=== PATIENT | female | born 1960 | race American Indian/Alaskan Native ===

== ENCOUNTER 2016-05-01 23:15 | Inpatient (IN) | payer MEDICARE, OTHER ==
[2016-05-01] MEDS ORDERED: DUONEB 0.5 MG-3 MG/3 ML SOLN IH ONE (23:34)
[2016-05-01] MEDS ORDERED: LASIX IV ONE (23:35)
[2016-05-01] MEDS ORDERED: MAGNESIUM SULFATE 2GM/50ML 2 GM/50 ML BAG IV ONE (23:35)
[2016-05-01] MEDS ORDERED: APRESOLINE IV ONE (23:37)
[2016-05-01 23:41] LABS: ISTAT Base Excess -3; ISTAT HCO3 23.8; ISTAT PCO2 50.1 (35-45); ISTAT PH 7.284 (7.35-7.45); ISTAT PO2 80 (80-105); ISTAT SO2 94; ISTAT TCO2 25
--- NOTE | 2016-05-02 00:17 | XRay Report ---
FINAL REPORT EXAM: XR CHEST 1V AP HISTORY: chest pain COMPARISON: None available. FINDINGS: Frontal view(s) of the chest obtained. Moderate cardiac enlargement. Left-sided defibrillator is in place. Airspace consolidations throughout the majority of the right lung and left lung base. Small left and moderate right-sided pleural effusions. No pneumothorax. IMPRESSION: Findings most concerning for moderate CHF more pronounced on the right. Superimposed pneumonia cannot be excluded.
[2016-05-02 00:23] LABS: Basophils % (Auto) 0.6 % (0.0-1.8); Eosinophils % (Auto) 2.1 % (0.0-4.3); Hematocrit 36.9 % (30.3-42.9); Hemoglobin 11.8 gm/dl (10.1-14.3); Mean Corpuscular HGB Conc 32 % (30-34); Mean Corpuscular Hemoglobin 28 pg (28-32); Mean Corpuscular Volume 88 fl (79-97); Platelet Count 276 K/mm3 (140-440); Red Blood Count 4.21 M/mm3 (3.65-5.03); Red Cell Distribution Width 14.3 % (13.2-15.2)
[2016-05-02 00:28] LABS: Bilirubin,Urine NEG (Negative); Blood,Urine SM (Negative); Ketones,Urine NEG (Negative); Leukocyte Esterase,Urine NEG (Negative); Nitrite,Urine NEG (Negative); Urobilinogen,Urine < 2.0 mg/dL (<2.0); WBC,Urine < 1.0 /HPF (0.0-6.0)
[2016-05-02 00:30] LABS: Protein,Urine >500 mg/dL (Negative)
[2016-05-02 00:44] LABS: Alanine Aminotransferase 16 units/L (7-56); Albumin 3.1 g/dL (3.9-5); Albumin/Globulin Ratio 0.8 %; Alkaline Phosphatase 82 units/L (35-129); Anion Gap 18 mmol/L; BUN/Creatinine Ratio 22.85; Bilirubin,Total 0.5 mg/dL (0.1-1.2); Blood Urea Nitrogen 16 mg/dL (7-17); Calcium 8.5 mg/dL (8.4-10.2); Carbon Dioxide 25 mmol/L (22-30); Chloride 97.8 mmol/L (98-107); Glucose 383 mg/dL (65-100); Potassium 3.2 mmol/L (3.6-5.0); Sodium 138 mmol/L (137-145)
--- NOTE | 2016-05-02 01:38 | Emergency Department Report ---
HPI - General Chief Complaint: Dyspnea/Respdistress Time Seen by Provider: 05/01/16 23:34 - HPI HPI: The patient is a 56-year-old female with a history of CHF, COPD, pacemaker placement, and who presents for evaluation of dyspnea. The patient reports 1 day of constant dyspnea, severe, exacerbated with exertion or lying flat, and associated with generalized weakness and leg swelling. Per EMS on arrival the patient was in respiratory distress with low oxygen saturation on pulse oximetry. The patient denies fever, syncope, chest pain, hemoptysis, unilateral leg swelling, recent immobilization, history of DVT or PE. ED Past Medical Hx - Past Medical History Hx Hypertension: Yes Hx Heart Attack/AMI: No Hx Congestive Heart Failure: Yes Hx Diabetes: Yes Hx Asthma: No Hx COPD: Yes - Surgical History Past Surgical History?: Yes Hx Internal Defibrillator: Yes - Social History Smoking Status: Unknown if ever smoked - Medications Home Medications: Home Medications Medication Instructions Recorded Confirmed Last Taken Type Aspirin EC [Aspirin Enteric Coated 81 mg PO QDAY 12/31/14 12/31/14 Unknown History TAB] Carvedilol Phosphate [Coreg CR] 80 mg PO QDAY 12/31/14 12/31/14 Unknown History Digoxin [Lanoxin] 0.125 mg PO DAILY 12/31/14 12/31/14 Unknown History Esomeprazole Magnesium [NexIUM] 40 mg PO QDAY 12/31/14 12/31/14 Unknown History Humalog Kwikpen 200 UNITS/ML 6 units SUB-Q TID 12/31/14 12/31/14 Unknown History Insulin Glargine,Hum.rec.anlog 40 units SQ QHS 12/31/14 12/31/14 Unknown History [Lantus Solostar] Latanoprost 0.005% [Xalatan 0.005%] 1 drop OP QPM 12/31/14 12/31/14 Unknown History Metformin HCl [Glucophage] 1,000 mg PO BID 12/31/14 12/31/14 Unknown History Metolazone 5 mg PO QDAY 12/31/14 12/31/14 Unknown History NIFEdipine XL [Procardia Xl] 60 mg PO QDAY 12/31/14 12/31/14 Unknown History Potassium Chloride [K-Dur] 20 meq PO QDAY 12/31/14 12/31/14 Unknown History Quinapril HCl 1 tab PO AC 12/31/14 12/31/14 Unknown History Simvastatin [Zocor TAB] 40 mg PO QHS 12/31/14 12/31/14 Unknown History Furosemide [Lasix TAB] 40 mg PO QDAY 01/03/15 01/03/15 Unknown History ED Review of Systems ROS: Stated complaint: NADEEN Other details as noted in HPI Constitutional: denies: fever ENT: denies: throat or neck pain Respiratory: reports shortness of breath Cardiovascular: denies: chest pain Endocrine: denies unexplained weight loss or gain Gastrointestinal: denies: abdominal pain, nausea Genitourinary: denies: dysuria Musculoskeletal: denies: leg swelling Skin: denies: rash Neurological: denies: headache Hematological/Lymphatic: denies: easy bleeding or easy bruising Psych: denies sadness or hopelessness Physical Exam - Physical Exam Vital Signs: Vital Signs 05/01/16 05/01/16 05/01/16 23:14 23:17 23:20 Pulse Rate 108 H 104 H 106 H Pulse Rate [ Anterior Bilateral Throughout] Respiratory 34 H 30 H 36 H Rate Respiratory Rate [Anterior Bilateral Throughout] Blood Pressure 172/103 172/103 Blood Pressure [Left] O2 Sat by Pulse 46 L 90 91 Oximetry 05/01/16 05/01/16 05/01/16 23:25 23:30 23:40 Pulse Rate 108 H 100 H 96 H Pulse Rate [ Anterior Bilateral Throughout] Respiratory 27 H 25 H 25 H Rate Respiratory Rate [Anterior Bilateral Throughout] Blood Pressure 172/103 160/94 163/92 Blood Pressure 163/92 [Left] O2 Sat by Pulse 90 89 90 Oximetry 05/01/16 05/01/16 05/01/16 23:44 23:50 23:53 Pulse Rate 100 H Pulse Rate [ 99 H 99 H Anterior Bilateral Throughout] Respiratory 29 H Rate Respiratory 25 H 24 Rate [Anterior Bilateral Throughout] Blood Pressure 148/94 Blood Pressure [Left] O2 Sat by Pulse 91 Oximetry 05/02/16 05/02/16 05/02/16 00:00 00:10 00:16 Pulse Rate 100 H 99 H 100 H Pulse Rate [ Anterior Bilateral Throughout] Respiratory 27 H 26 H 28 H Rate Respiratory Rate [Anterior Bilateral Throughout] Blood Pressure 171/97 171/97 181/98 Blood Pressure [Left] O2 Sat by Pulse 98 96 97 Oximetry 03/05/02/16 05/02/16 00:20 00:24 00:30 Pulse Rate 98 H 99 H Pulse Rate [ Anterior Bilateral Throughout] Respiratory 25 H 24 Rate Respiratory Rate [Anterior Bilateral Throughout] Blood Pressure 181/98 183/104 Blood Pressure [Left] O2 Sat by Pulse 97 89 97 Oximetry Physical Exam: General: well-nourished, well-developed, no acute distress, patient morbidly obese Head: Normocephalic, atraumatic Eyes: normal sclera ENT: Mucous membranes are pink and moist Neck: trachea midline, neck supple, No neck stiffness, no cervical adenopathy Respiratory: Mild costal retractions, diminished breath sounds and wheezing present to bilateral lung [place], crackles present to bi-basilar lung seg[place] as well Cardio: S1 and S2 present, no murmurs, rubs, gallops, capillary refill is brisk Abdomen: Normoactive bowel sounds, soft abdomen, no rigidity, no guarding or rebound tenderness Musc: 1+ pitting edema of lower legs bilaterally Skin: No rash Neuro: no facial drooping, normal speech Psych: Normal affect ED Course Vital Signs 05/01/16 05/01/16 05/01/16 23:14 23:17 23:20 Pulse Rate 108 H 104 H 106 H Pulse Rate [ Anterior Bilateral Throughout] Respiratory 34 H 30 H 36 H Rate Respiratory Rate [Anterior Bilateral Throughout] Blood Pressure 172/103 172/103 Blood Pressure [Left] O2 Sat by Pulse 46 L 90 91 Oximetry 05/01/16 05/01/16 05/01/16 23:25 23:30 23:40 Pulse Rate 108 H 100 H 96 H Pulse Rate [ Anterior Bilateral Throughout] Respiratory 27 H 25 H 25 H Rate Respiratory Rate [Anterior Bilateral Throughout] Blood Pressure 172/103 160/94 163/92 Blood Pressure 163/92 [Left] O2 Sat by Pulse 90 89 90 Oximetry 05/01/16 05/01/16 05/01/16 23:44 23:50 23:53 Pulse Rate 100 H Pulse Rate [ 99 H 99 H Anterior Bilateral Throughout] Respiratory 29 H Rate Respiratory 25 H 24 Rate [Anterior Bilateral Throughout] Blood Pressure 148/94 Blood Pressure [Left] O2 Sat by Pulse 91 Oximetry 05/02/16 05/02/16 05/02/16 00:00 00:10 00:16 Pulse Rate 100 H 99 H 100 H Pulse Rate [ Anterior Bilateral Throughout] Respiratory 27 H 26 H 28 H Rate Respiratory Rate [Anterior Bilateral Throughout] Blood Pressure 171/97 171/97 181/98 Blood Pressure [Left] O2 Sat by Pulse 98 96 97 Oximetry 05/02/16 05/02/16 05/02/16 00:20 00:24 00:30 Pulse Rate 98 H 99 H Pulse Rate [ Anterior Bilateral Throughout] Respiratory 25 H 24 Rate Respiratory Rate [Anterior Bilateral Throughout] Blood Pressure 181/98 183/104 Blood Pressure [Left] O2 Sat by Pulse 97 89 97 Oximetry ED Medical Decision Making - Lab Data Result diagrams: 05/01/16 23:51 05/01/16 23:51 - Medical Decision Making The patient was seen and examined by myself. The patient is placed on a lunchroom monitor and continuous pulse ox. On initial evaluation, the patient was found to be in mild respiratory distress, with low oxygen saturation in the low 80s despite supplemental oxygenation. The patient is placed on BiPAP and oxygen saturation increases to 90%. Evaluation orders were placed. The patient is given a breathing treatment and IV Solu-Medrol of COPD, IV Lasix for treatment of CHF exacerbation, and IV hydralazine for treatment of elevated blood pressure. X-ray demonstrates bilateral pulmonary consolidations and pleural effusions, consistent with acute CHF. Lab results reveal elevated glucose 380, elevated lactic acid of 3, elevated BNP of 1900, and elevated PCO2 of 50 on ABG. The on-call hospitalist service was contacted. They agreed to admit the patient for further treatment and close monitoring. The ED admit order was placed. The patient was admitted in guarded condition. Critical care attestation.: If time is entered above; I have spent that time in minutes in the direct care of this critically ill patient, excluding procedure time. ED Disposition Clinical Impression: Acute hypercapnic respiratory failure, Hypoxia, Lactic acidosis, Acute exacerbation of chronic obstructive pulmonary disease (COPD) CHF (congestive heart failure) Qualifiers: Congestive heart failure type: systolic Congestive heart failure chronicity: acute Qualified Code(s): I50.21 - Acute systolic (congestive) heart failure Disposition: OP ADMITTED IP TO THIS HOSP Is pt being admited?: Yes Does the pt Need Aspirin: Yes Condition: Serious Referrals: PRIMARY CARE, [Primary Care Provider] - 3-5 Days Time of Disposition: 00:41
[2016-05-02] MEDS ORDERED: BABY ASPIRIN PO ONE (01:41)
[2016-05-02] MEDS ORDERED: LEVAQUIN 750MG/150ML 750 MG/150 ML BAG IV ONE (02:12)
[2016-05-02] MEDS ORDERED: MILK OF MAGNESIA PO PRN (02:13)
[2016-05-02] MEDS ORDERED: D50W (25GM) IV PRN (02:13)
[2016-05-02] MEDS ORDERED: PROVENTIL IH PRN (02:13)
[2016-05-02] MEDS ORDERED: DULCOLAX PR PRN (02:13)
--- NOTE | 2016-05-02 02:18 | History and Physical Report ---
History of Present Illness Date of examination: 05/02/16 History of present illness: 56 -year-old woman with a history of CHF, hypertension, COPD, pulmonary hypertension, hyperlipidemia, peripheral vascular disease comes emergency room with complaints of shortness of breath started on the day of admission. She denies cough, fever. Patient was found to be in respiratory distress, given IV Lasix in the field, in the emergency room she was placed on BiPAP, given steroids nebulizer treatment and additional Lasix Patient denies chest pain, palpitation, cough, abdominal pain, hematochezia, dysuria, frequency, focal weakness, dysarthria, fever chills, polydipsia polyuria, hot or cold intolerance, easy bruisability, or rash or bleeding from mucosal membrane, rhinorrhea, epistaxis, earache, tinnitus, blurry vision, eye discharge, anxiety, depression. Other review of systems negative PAST SURGICAL HISTORY: AICD SOCIAL HISTORY: Denies alcohol, tobacco, drugs FAMILY HISTORY: Hypertension Medications and Allergies Allergies Allergy/AdvReac Type Severity Reaction Status Date / Time No Known Allergies Allergy Unverified 12/31/14 14:21 Home Medications Medication Instructions Recorded Confirmed Last Taken Type Digoxin [Lanoxin] 0.125 mg PO DAILY 12/31/14 05/02/16 1 Day Ago History Metformin HCl [Glucophage] 1,000 mg PO BID 12/31/14 05/02/16 05/01/16 History NIFEdipine XL [Procardia Xl] 60 mg PO QDAY 12/31/14 05/02/16 05/01/16 History Potassium Chloride [K-Dur] 20 meq PO QDAY 12/31/14 05/02/16 05/01/16 History Quinapril HCl 1 tab PO AC 12/31/14 05/02/16 05/01/16 History Furosemide [Lasix TAB] 40 mg PO QDAY 01/03/15 05/02/16 05/01/16 History Carvedilol Phosphate [Coreg CR] 80 mg PO QDAY 05/02/16 05/02/16 05/01/16 History Isosorbide Dinitrate [Isordil 10 mg PO TID 05/02/16 05/02/16 05/01/16 History Titradose] hydrALAZINE [Apresoline TAB] 25 mg PO Q8HR 05/02/16 05/02/16 05/01/16 History Aspirin EC [Aspirin Enteric Coated 81 mg PO QDAY #30 tablet. 05/06/16 Unknown Rx TAB] Simvastatin [Zocor TAB] 40 mg PO QHS tablet 05/06/16 Unknown Rx Spironolactone [Aldactone] 25 mg PO QDAY #30 tablet 05/06/16 Unknown Rx Active Meds: Active Medications Levofloxacin/Dextrose (Levaquin 750mg/150ml) 750 mg in 150 mls @ 100 mls/hr IV ONCE ONE Stop: 05/02/16 03:41 Exam - Physical Exam Narrative exam: Gen. appearance: Patient lying in bed, no apparent distress HEENT: Normocephalic, atraumatic, pupils equally round and reactive to light, extraocular movement intact, and no sclericterus,. No JVD or thyromegaly or nodule,neck supple, no carotid bruit ,mucous membranes moist, no exudate or erythema Heart: S1, S2, regular rate and rhythm Lungs: Crackles bilaterally, breathing comfortable Abdomen: Positive bowel sounds, nontender, nondistended, no organomegaly Extremity: Trace edema, cyanosis, clubbing Skin: No rash, nodules, warm, dry Neuro: Oriented 3, cranial nerves II-12 intact, speech is fluent, motor and sensory intact - Constitutional Vitals: Temp Pulse Resp BP Pulse Ox 96 H 25 H 171/99 94 05/02/16 01:30 05/02/16 01:30 05/02/16 01:30 05/02/16 01:30 Results - Labs CBC & Chem 7: 05/04/16 04:42 05/06/16 07:06 Labs: Abnormal lab results 05/01/16 05/01/16 05/01/16 Range/Units 23:35 23:51 23:51 Seg Neutrophils % 76.8 H (40.0-70.0) % Seg Neutrophils # 8.5 H (1.8-7.7) K/mm3 POC ABG pH 7.284 L (7.35-7.45) POC ABG pCO2 50.1 H (35-45) Potassium 3.2 L (3.6-5.0) mmol/L Chloride 97.8 L (98-107) mmol/L Glucose 383 H (65-100) mg/dL Lactic Acid (0.7-2.0) mmol/L NT-Pro-B Natriuret Pep 1924 H (0-900) pg/mL Albumin 3.1 L (3.9-5) g/dL 05/01/16 Range/Units 23:51 Seg Neutrophils % (40.0-70.0) % Seg Neutrophils # (1.8-7.7) K/mm3 POC ABG pH (7.35-7.45) POC ABG pCO2 (35-45) Potassium (3.6-5.0) mmol/L Chloride (98-107) mmol/L Glucose (65-100) mg/dL Lactic Acid 3.0 H* (0.7-2.0) mmol/L NT-Pro-B Natriuret Pep (0-900) pg/mL Albumin (3.9-5) g/dL - Imaging and Cardiology EKG: image reviewed Chest x-ray: report reviewed Assessment and Plan CHF exacerbation, acute on chronic, systolic Community-acquired pneumonia Hypertension COPD Pulmonary hypertension Hyperlipidemia Peripheral vascular disease Admit to medicine Diuresed with IV Lasix Check cardiac enzymes, echo, consult cardiology Continue beta isidro, ELDON inhibitor, aspirin Untie cyanosis, daily weights Start IV Levaquin, first dose now, obtain blood cultures Continue appropriate outpatient medications Start DVT prophylaxis
[2016-05-02 03:43] LABS: Creatine Kinase MB 3.2 ng/mL (0.0-4.0)
[2016-05-02] MEDS: LASIX IV SCH ×2 (05:31→18:19)
[2016-05-02] MEDS ORDERED: QUINAPRIL HCL PO SCH (07:30)
[2016-05-02] MEDS ORDERED: HUMALOG SUB-Q SCH (08:00)
[2016-05-02] MEDS: PROTONIX PO SCH (09:14)
[2016-05-02] MEDS: BABY ASPIRIN PO SCH (09:14)
[2016-05-02] MEDS: COREG PO SCH ×2 (09:14→21:20)
[2016-05-02] MEDS: LOVENOX SUB-Q SCH (09:15)
[2016-05-02 09:23] LABS: Creatine Kinase MB 2.5 ng/mL (0.0-4.0)
[2016-05-02] MEDS: GLUCOPHAGE PO SCH ×2 (09:24→21:21)
[2016-05-02] MEDS: NOVOLOG SUB-Q SCH ×7 (09:24→21:22)
--- NOTE | 2016-05-02 09:28 | Admit Criteria Form ---
Admission Criteria Documentation: COPD Clinical Indications for Admission to Inpatient Care (Place 'X' for any and all applicable criteria): Admission is indicated for ANY ONE of the following (1)(2)(3): [ ]I. Acute exacerbation by high-risk comorbidity (e.g., pneumonia, dysrhythmia, heart failure, pleural effusion, pneumothorax) or severe underlying COPD (e.g., steroid dependent) [ X]II. Inpatient admission required rather than observation care (see Chronic Obstructive Pulmonary Disease: Observation Care) because of ANY ONE of the following: [X ]a) New or pre-existing signs or symptoms of COPD (eg, dyspnea or Tachypnea at rest or with minimal activity) that persist despite outpatient and observation care treatment [ ]b) New-onset hypoxemia (room air SaO2 less than 90%, PO2 less than 60 mm Hg (8.0 kPa)) that persists despite outpatient and observation care treatment [ ]c) Worsening of pre-existing hypoxemia (eg, new or increased requirement for supplemental oxygen to maintain oxygenation at baseline level) that persists despite outpatient and observation care treatment, with oxygen treatment needs performable only in acute inpatient setting [ ]d) Hypercarbia (PCO2 greater than 40 mm Hg (5.3 kPa))-induced respiratory acidosis (pH less than 7.35) that persists despite outpatient and observation care treatment [ ]e) Supplemental oxygen or respiratory treatments for over 24 hours that are performable only in acute inpatient setting [ ]f) Chest tube placement with active evacuation (e.g., suction, drainage) (5) [ ]g) Other condition, treatment or monitoring requiring inpatient admission [ ]III. Planned invasive surgical or diagnostic procedures requiring acute- care hospitalization [X ]IV. Acute respiratory failure (e.g., uncompensated hypercarbia, severe hypoxemia) [ ]V. Severe comorbid condition (e.g., severe steroid myopathy, acute vertebral fracture) that has acutely worsened pulmonary function [ ]. Confusion state, lethargy, obtundation, stupor or coma Extended stay beyond goal length of stay may be needed for (31)(32): [ ]a ) Respiratory Failure. [ ]b) Severe or persisting hypoxemia or hypercarbia [ ]c) Severe or persistent dyspnea [ ]d) Comorbidities (e.g. chronic heart failure, atrial fibrillation with rapid response, pneumonia) [ ]e) Malnutrition The original [facility] content created by [facility] has been revised. The portions of the content which have been revised are identified through the use of italic text or in bold, and [facility] has neither reviewed nor approved the modified material. All other unmodified content is copyright [facility]. Please see references footnoted in the original [facility] edition 2016 Admission Criteria Met: Yes
[2016-05-02] MEDS ORDERED: ZESTRIL PO SCH (10:00)
[2016-05-02] MEDS ORDERED: COREG PO SCH (10:00)
--- NOTE | 2016-05-02 11:05 | Consultation ---
History of Present Illness Consult date: 05/02/16 Consult reason: congestive heart failure History of present illness: This is a 56yr old female with a history of Dilated Nonischemic Cardiomyopathy and has an indwelling cardiac defibrillator who presented to the ED with complaints of difficulty breathing. Patient associates her shortness of breath with lower extremity edema. A chest x-ray reports a right pleural effusion and questionable pneumonia. Initially she was placed on Cpap but is now on high flow oxygen. Medications and Allergies Allergies Allergy/AdvReac Type Severity Reaction Status Date / Time No Known Allergies Allergy Unverified 12/31/14 14:21 Home Medications Medication Instructions Recorded Confirmed Last Taken Type Digoxin [Lanoxin] 0.125 mg PO DAILY 12/31/14 05/02/16 1 Day Ago History Metformin HCl [Glucophage] 1,000 mg PO BID 12/31/14 05/02/16 05/01/16 History NIFEdipine XL [Procardia Xl] 60 mg PO QDAY 12/31/14 05/02/16 05/01/16 History Potassium Chloride [K-Dur] 20 meq PO QDAY 12/31/14 05/02/16 05/01/16 History Quinapril HCl 1 tab PO AC 12/31/14 05/02/16 05/01/16 History Furosemide [Lasix TAB] 40 mg PO QDAY 01/03/15 05/02/16 05/01/16 History Carvedilol Phosphate [Coreg CR] 80 mg PO QDAY 05/02/16 05/02/16 05/01/16 History Isosorbide Dinitrate [Isordil 10 mg PO TID 05/02/16 05/02/16 05/01/16 History Titradose] hydrALAZINE [Apresoline] 25 mg PO Q8HR 05/02/16 05/02/16 05/01/16 History Active Meds: Active Medications Acetaminophen (Tylenol) 650 mg PO Q4H PRN PRN Reason: Pain MILD(1-3)/Fever >100.5/LEIGH Albuterol (Proventil) 2.5 mg IH Q3HRT PRN PRN Reason: Shortness Of Breath Aspirin (Baby Aspirin) 81 mg PO QDAY [facility]AC[facility] Last Admin: 05/02/16 09:14 Dose: 81 mg Bisacodyl (Dulcolax) 10 mg DE QDAY PRN PRN Reason: Constipation unrelieved by MOM Carvedilol (Coreg) 25 mg PO Q12HR [facility] Last Admin: 05/02/16 09:14 Dose: 25 mg Dextrose (D50w (25gm)) 50 ml IV PRN PRN PRN Reason: Hypoglycemia Digoxin (Lanoxin) 0.125 mg PO 1700 [facility] Enoxaparin Sodium (Lovenox) 40 mg SUB-Q QDAY [facility] Last Admin: 05/02/16 09:15 Dose: 40 mg Furosemide (Lasix) 40 mg IV BID@0600,1800 [facility] Last Admin: 05/02/16 05:31 Dose: 40 mg Insulin Aspart (Novolog) 0 units SUB-Q ACHS [facility] PRN Reason: Protocol Last Admin: 05/02/16 09:24 Dose: 10 units Insulin Aspart (Novolog) 6 units SUB-Q TIDAC [facility] Last Admin: 05/02/16 09:25 Dose: 6 units Insulin Detemir (Levemir) 40 units SUB-Q QHS [facility] Magnesium Hydroxide (Milk Of Magnesia) 30 ml PO Q4H PRN PRN Reason: Constipation Metformin HCl (Glucophage) 1,000 mg PO BID [facility] Last Admin: 05/02/16 09:24 Dose: 1,000 mg Miscellaneous Medication (Quinapril Hcl [Quinapril Hcl]) 1 tab PO AC [facility] Ondansetron HCl (Zofran) 4 mg IV Q8H PRN PRN Reason: N/V unrelieved by Reglan Pantoprazole Sodium (Protonix) 40 mg PO DAILY [facility] Last Admin: 05/02/16 09:14 Dose: 40 mg Simvastatin (Zocor) 40 mg PO QHS [facility] Physical Examination Vital Signs Pulse Resp Pulse Ox 108 H 34 H 46 L 05/01/16 23:14 05/01/16 23:14 05/01/16 23:14 General appearance: no acute distress HEENT: Positive: PERRL Neck: Positive: trachea midline Cardiac: Positive: Other (v-paced) Lungs: Positive: Decreased Breath Sounds Results 05/01/16 23:51 05/01/16 23:51 Cardiac Enzymes 05/02/16 05/02/16 Range/Units 02:33 08:40 CK-MB (CK-2) 3.2 2.5 (0.0-4.0) ng/mL Lipids 05/02/16 Range/Units 02:33 Triglycerides 136 (2-149) mg/dL Cholesterol 238 H (50-199) mg/dL HDL Cholesterol 71 H (40-59) mg/dL Cholesterol/HDL Ratio 3.35 % EKG interpretations - Telemetry EKG Rhythm: Paced Assessment and Plan Acute respiratory failure Pneumonia Right Pleural effusion Dilated Nonischemic cardiomyopathy EF 15-20% on echo 2012 Hypertension COPD
[2016-05-02] MEDS: ZESTRIL PO SCH (13:35)
--- NOTE | 2016-05-02 14:03 | Consultation ---
History of Present Illness Consult date: 05/02/16 Requesting physician: ZOEY BUCHANAN Reason for consult: dyspnea, hypoxemia History of present illness: 56 y/o female with heart failure, presumed systolic with a defibrillator who is admitted with acute hypoxic respiratory failure thought secondary to volume overload and possible concern for pneumonia. Per patient, no fever at home, no shaking chills. Only sick contacts have been the last time she was here in the hospital. Patient placed on bipap and has since been transitioned to HFNC at 30 and 80%. Currently awake and alert, no distress. Unable to lie flat. Has been this way for some time. Has had some swelling which improved diuresis. Denies any noncompliance with therapy. Wore bipap last night and tolerated. Past History Past Medical History: hypertension, other (CHF, systolic heart failure) Past Surgical History: Other (defib placement) Medications and Allergies Allergies Allergy/AdvReac Type Severity Reaction Status Date / Time No Known Allergies Allergy Unverified 12/31/14 14:21 Home Medications Medication Instructions Recorded Confirmed Last Taken Type Digoxin [Lanoxin] 0.125 mg PO DAILY 12/31/14 05/02/16 1 Day Ago History Metformin HCl [Glucophage] 1,000 mg PO BID 12/31/14 05/02/16 05/01/16 History NIFEdipine XL [Procardia Xl] 60 mg PO QDAY 12/31/14 05/02/16 05/01/16 History Potassium Chloride [K-Dur] 20 meq PO QDAY 12/31/14 05/02/16 05/01/16 History Quinapril HCl 1 tab PO AC 12/31/14 05/02/16 05/01/16 History Furosemide [Lasix TAB] 40 mg PO QDAY 01/03/15 05/02/16 05/01/16 History Carvedilol Phosphate [Coreg CR] 80 mg PO QDAY 05/02/16 05/02/16 05/01/16 History Isosorbide Dinitrate [Isordil 10 mg PO TID 05/02/16 05/02/16 05/01/16 History Titradose] hydrALAZINE [Apresoline] 25 mg PO Q8HR 05/02/16 05/02/16 05/01/16 History Active Meds: Active Medications Acetaminophen (Tylenol) 650 mg PO Q4H PRN PRN Reason: Pain MILD(1-3)/Fever >100.5/LEIGH Albuterol (Proventil) 2.5 mg IH Q3HRT PRN PRN Reason: Shortness Of Breath Aspirin (Baby Aspirin) 81 mg PO QDAY [facility] Last Admin: 05/02/16 09:14 Dose: 81 mg Bisacodyl (Dulcolax) 10 mg [place] QDAY PRN PRN Reason: Constipation unrelieved by MOM Carvedilol (Coreg) 25 mg PO Q12HR [facility] Last Admin: 05/02/16 09:14 Dose: 25 mg Dextrose (D50w (25gm)) 50 ml IV PRN PRN PRN Reason: Hypoglycemia Digoxin (Lanoxin) 0.125 mg PO 1700 [facility] Enoxaparin Sodium (Lovenox) 40 mg SUB-Q QDAY [facility] Last Admin: 05/02/16 09:15 Dose: 40 mg Furosemide (Lasix) 40 mg IV BID@0600,1800 [facility] Last Admin: 05/02/16 05:31 Dose: 40 mg Insulin Aspart (Novolog) 0 units SUB-Q ACHS [facility] PRN Reason: Protocol Last Admin: 05/02/16 13:33 Dose: 6 units Insulin Aspart (Novolog) 6 units SUB-Q TIDAC [facility] Last Admin: 05/02/16 13:33 Dose: 6 units Insulin Detemir (Levemir) 40 units SUB-Q QHS [facility] Lisinopril (Zestril) 20 mg PO QDAY [facility] Last Admin: 05/02/16 13:35 Dose: 20 mg Magnesium Hydroxide (Milk Of Magnesia) 30 ml PO Q4H PRN PRN Reason: Constipation Metformin HCl (Glucophage) 1,000 mg PO BID [facility] Last Admin: 05/02/16 09:24 Dose: 1,000 mg Ondansetron HCl (Zofran) 4 mg IV Q8H PRN PRN Reason: N/V unrelieved by Reglan Pantoprazole Sodium (Protonix) 40 mg PO DAILY [facility] Last Admin: 05/02/16 09:14 Dose: 40 mg Simvastatin (Zocor) 40 mg PO QHS [facility] Review of Systems All systems: negative Physical Examination Vital signs: Vital Signs Pulse Resp Pulse Ox 108 H 34 H 46 L 05/01/16 23:14 05/01/16 23:14 05/01/16 23:14 General appearance: no acute distress, alert, other (well nourished, well developed. Obese black female) Eyes: non-icteric ENT: oropharynx moist Neck: supple Effort: normal Ascultation: Bilateral: diminished breath sounds, rales (right greater than left ) Percussion: Bilateral: not dull Cardiovascular: regular rate and rhythm Gastrointestinal: normoactive bowel sounds Integumentary: normal Extremities: edema (trace to 1 +) Musculoskeletal: no deformities Gait: normal gait normal mental status, non-focal exam mood appropriate, affect normal Results - Laboratory Findings CBC and BMP: 05/01/16 23:51 05/01/16 23:51 ABG POC ABG pH 7.284 (7.35-7.45) L 05/01/16 23:35 POC ABG pCO2 50.1 (35-45) H 05/01/16 23:35 POC ABG pO2 80 (80-105) 05/01/16 23:35 POC ABG HCO3 23.8 05/01/16 23:35 POC ABG Total CO2 25 05/01/16 23:35 POC ABG O2 Sat 94 05/01/16 23:35 Abnormal lab findings: Abnormal Labs 05/02/16 02:33 Total Creatine Kinase 148 H Troponin T 0.030 H D Cholesterol 238 H LDL Cholesterol Direct 140 H HDL Cholesterol 71 H - Diagnostic Findings Chest x-ray: image reviewed (bilateral alveolar filling process, right greater than left) Assessment and Plan 56 y/o female with acute hypoxic respiratory failure, thought secondary to volume overload. 1. Agree with continued diuresis as recommended by cards 2. No white count no fever, doubt pneuomonia at present. Would hold off on abx therapy 3. Will wean FiO2 for sats >88% 4. Bipap therapy at night for now 5. Needs better BP control 6. Will continue to follow along with you.
--- NOTE | 2016-05-02 17:06 | Event Note ---
Date: 05/02/16 Patient admitted with acute resp failure, pulmonary edema, possible pneumonia. She was seen and examined . Consulted Pulmnonology.
[2016-05-02 17:26] LABS: ISTAT Base Excess 2; ISTAT HCO3 26.2; ISTAT PCO2 39.7 (35-45); ISTAT PH 7.427 (7.35-7.45); ISTAT PO2 76 (80-105); ISTAT SO2 95; ISTAT TCO2 27
[2016-05-02] MEDS: LANOXIN PO SCH (18:20)
[2016-05-02] MEDS: ZOCOR PO SCH (21:20)
[2016-05-02] MEDS: LEVEMIR SUB-Q SCH (21:21)
[2016-05-02] MEDS ORDERED: NON-FORMULARY (Insulin Glargine,Hum.Rec.Anlog [Lantus Solostar] 40 UNITS) SQ SCH (22:00)
[2016-05-03] MEDS: ZOFRAN IV PRN (00:40)
[2016-05-03] MEDS: LASIX IV SCH ×2 (06:11→18:06)
[2016-05-03 06:31] LABS: Basophils % (Auto) 0.2 % (0.0-1.8); Eosinophils % (Auto) 0.2 % (0.0-4.3); Hemoglobin 9.1 gm/dl (10.1-14.3); Mean Corpuscular HGB Conc 32 % (30-34); Mean Corpuscular Hemoglobin 28 pg (28-32); Mean Corpuscular Volume 87 fl (79-97); Platelet Count 230 K/mm3 (140-440); Red Blood Count 3.26 M/mm3 (3.65-5.03); Red Cell Distribution Width 14.4 % (13.2-15.2); White Blood Count 19.3 K/mm3 (4.5-11.0)
[2016-05-03 06:34] LABS: Hematocrit 30.2 % (30.3-42.9)
[2016-05-03 06:46] LABS: Anion Gap 19 mmol/L; BUN/Creatinine Ratio 26.66; Blood Urea Nitrogen 24 mg/dL (7-17); Calcium 8.3 mg/dL (8.4-10.2); Carbon Dioxide 27 mmol/L (22-30); Chloride 101.8 mmol/L (98-107); Glucose 108 mg/dL (65-100); Sodium 145 mmol/L (137-145)
[2016-05-03 06:48] LABS: Potassium 2.9 mmol/L (3.6-5.0)
--- NOTE | 2016-05-03 10:55 | Progress Note ---
Assessment and Plan 56 y/o female with acute hypoxic respiratory failure, thought secondary to volume overload. 1. Agree with continued diuresis as recommended by cards 2. No white count no fever, doubt pneuomonia at present. Would hold off on abx therapy 3. Will wean FiO2 for sats >88% 4. Bipap therapy at night for now 5. Needs better BP control 6. Will continue to follow along with you. Subjective Date of service: 05/03/16 Interval history: No acute events. Objective Vital Signs - 12hr 05/02/16 05/02/16 05/03/16 23:56 23:59 04:00 Temperature 99.4 F 98.8 F Pulse Rate 94 H Pulse Rate [ 97 H 80 Left From Monitor] Respiratory 20 16 20 Rate Blood Pressure 144/70 143/74 [Left Arm] O2 Sat by Pulse 99 100 Oximetry 05/03/16 05/03/16 05/03/16 06:50 08:00 09:38 Temperature 98.2 F Pulse Rate 100 H Pulse Rate [ 79 Left From Monitor] Respiratory 20 Rate Blood Pressure 160/82 [Left Arm] O2 Sat by Pulse 93 100 Oximetry Constitutional: no acute distress, alert, other (well nourished, well developed. Obese black female) Eyes: non-icteric ENT: oropharynx moist Neck: supple Effort: normal Ascultation: Bilateral: diminished breath sounds, rales (right greater than left ) Percussion: Bilateral: not dull Cardiovascular: regular rate and rhythm Gastrointestinal: normoactive bowel sounds Integumentary: normal Extremities: edema (trace to 1 +) Neurologic: normal mental status, non-focal exam Psychiatric: mood appropriate, affect normal CBC and BMP: 05/04/16 04:42 05/04/16 04:42 ABG, PT/INR, D-dimer: ABG POC ABG pH 7.427 (7.35-7.45) 05/02/16 17:14 POC ABG pCO2 39.7 (35-45) 05/02/16 17:14 POC ABG pO2 76 (80-105) L 05/02/16 17:14 POC ABG HCO3 26.2 05/02/16 17:14 POC ABG Total CO2 27 05/02/16 17:14 POC ABG O2 Sat 95 05/02/16 17:14 Abnormal lab findings: Abnormal Labs 05/02/16 05/02/16 05/02/16 02:33 08:18 11:42 WBC RBC Hgb Hct Lymph % (Auto) [place] # Seg Neutrophils % Seg Neutrophils # POC ABG pO2 Potassium BUN Glucose POC Glucose 368 H 260 H Calcium Total Creatine Kinase 148 H Troponin T 0.030 H D Cholesterol 238 H LDL Cholesterol Direct 140 H HDL Cholesterol 71 H 05/02/16 05/02/16 05/02/16 16:22 17:14 20:47 WBC RBC Hgb Hct Lymph % (Auto) [place] # Seg Neutrophils % Seg Neutrophils # POC ABG pO2 76 L Potassium BUN Glucose POC Glucose 57 L 201 H Calcium Total Creatine Kinase Troponin T Cholesterol LDL Cholesterol Direct HDL Cholesterol 05/03/16 05/03/16 06:16 06:16 WBC 19.3 H RBC 3.26 L Hgb 9.1 L Hct 30.2 L D Lymph % (Auto) 11.4 L [place] # 1.0 H Seg Neutrophils % 83.2 H Seg Neutrophils # 16.1 H POC ABG pO2 Potassium 2.9 L* BUN 24 H Glucose 108 H POC Glucose Calcium 8.3 L Total Creatine Kinase Troponin T Cholesterol LDL Cholesterol Direct HDL Cholesterol
[2016-05-03] MEDS: GLUCOPHAGE PO SCH ×2 (11:37→23:00)
[2016-05-03] MEDS: ZESTRIL PO SCH (11:38)
[2016-05-03] MEDS: BABY ASPIRIN PO SCH (11:38)
[2016-05-03] MEDS: PROTONIX PO SCH (11:38)
[2016-05-03] MEDS: LOVENOX SUB-Q SCH (11:38)
[2016-05-03] MEDS: COREG PO SCH ×2 (11:39→23:00)
[2016-05-03] MEDS: NOVOLOG SUB-Q SCH ×7 (11:40→23:57)
[2016-05-03] MEDS: KCL 10MEQ/100ML 10 MEQ/100 ML BAG IV SCH ×2 (11:41→17:22)
[2016-05-03] MEDS: K-DUR PO SCH ×2 (12:03→17:29)
--- NOTE | 2016-05-03 12:15 | XRay Report ---
Single view chest: Compared to 05/01/16. History: Hypoxemia. Findings: Marked cardiomegaly. Trachea is midline. Stable pacemaker. Mild pulmonary venous congestion. Normal CP angles. Impression: Marked decrease in pulmonary edema and venous congestion compared to previous study.
--- NOTE | 2016-05-03 13:52 | Progress Note ---
Assessment and Plan Acute respiratory failure Possible Pneumonia Right Pleural effusion Systolic Heart failure Dilated Nonischemic cardiomyopathy EF 15-20% on echo 2012 Presence of AICD Hypertension COPD Recommendations: Continue IV diuresis, afterload reduction and beta isidro for systolic heart failure. Is and Os Daily weights Fluid restriction Subjective Date of service: 05/03/16 Interval history: Patient reports shortness of breath is less; remains on high flow oxygen. She denies chest pain. Objective Vital Signs Temp Pulse Pulse Resp BP BP Pulse Ox 05/03/16 12:00 98.3 F 81 20 168/81 95 05/03/16 09:38 100 05/03/16 08:00 98.2 F 79 20 160/82 93 05/03/16 06:50 100 H 05/03/16 04:00 98.8 F 80 20 143/74 05/02/16 23:59 99.4 F 97 H 16 144/70 100 05/02/16 23:56 94 H 20 99 05/02/16 21:20 93 H 172/81 05/02/16 20:45 20 98 05/02/16 20:31 97 05/02/16 20:21 99.3 F 93 H 18 172/81 05/02/16 20:00 88 05/02/16 18:20 82 172/85 - Physical Examination General: No Apparent Distress HEENT: Positive: PERRL Neck: Positive: trachea midline Cardiac: Positive: Other (v-paced) Lungs: Positive: Decreased Breath Sounds Neuro: Positive: Grossly Intact - Labs and Meds CBC 05/03/16 Range/Units 06:16 WBC 19.3 H (4.5-11.0) K/mm3 RBC 3.26 L (3.65-5.03) M/mm3 Hgb 9.1 L (10.1-14.3) gm/dl Hct 30.2 L D (30.3-42.9) % Plt Count 230 (140-440) K/mm3 Lymph # 2.2 (1.2-5.4) K/mm3 [place] # 1.0 H (0.0-0.8) K/mm3 Eos # 0.0 (0.0-0.4) K/mm3 Baso # 0.0 (0.0-0.1) K/mm3 Comprehensive Metabolic Panel 05/03/16 Range/Units 06:16 Sodium 145 D (137-145) mmol/L Potassium 2.9 L* (3.6-5.0) mmol/L Chloride 101.8 (98-107) mmol/L Carbon Dioxide 27 (22-30) mmol/L BUN 24 H (7-17) mg/dL Creatinine 0.9 (0.7-1.2) mg/dL Glucose 108 H (65-100) mg/dL Calcium 8.3 L (8.4-10.2) mg/dL - Imaging and Cardiology EKG: image reviewed
[2016-05-03] MEDS: LANOXIN PO SCH (18:06)
[2016-05-03] MEDS ORDERED: K-DUR PO SCH (18:40)
[2016-05-03] MEDS: LEVEMIR SUB-Q SCH (23:00)
[2016-05-03] MEDS: ZOCOR PO SCH (23:00)
--- NOTE | 2016-05-04 01:29 | Progress Note ---
Assessment and Plan Assessment and plan: Acute respiratory failure with hypoxia, due to CHF exacerbation. On supplemental oxygen. Pulm consulted Acute on chronic systolic CHF. Cont Lasix, Coreg, Digoxin. Cardiology folllowing Hypertension. Blood pressure stable Pulmonary hypertension. Hyperlipidemia Peripheral vascular disease DVT prophylaxis with Heparin Full code status History Interval history: less shortness of breath, no chest pain Hospitalist Physical - Physical exam Narrative exam: Gen: not in acute distress,obese HEENT: normocephalic,atraumatic Neck :supple, no JVD Lungs: bilateral rales, no wheezes Heart: S1 and S2 regular, no murmurs no gallops,no rubs Abdomen: soft nontender, nondistended, normal bowel sounds Extremities: edema bilateral lower ext, no clubbing, no cyanosis Neuro: Awake alert oriented x 3, no focal signs Psych:normal mood P - Constitutional Vitals: Temp Pulse Resp BP Pulse Ox 98.9 F 74 20 151/68 99 05/04/16 00:15 05/04/16 00:15 05/04/16 00:15 05/04/16 00:15 05/04/16 00:15 General appearance: Present: no acute distress Results - Labs CBC & Chem 7: 05/04/16 04:42 05/04/16 04:42 Labs: Laboratory Last Values WBC 19.3 K/mm3 (4.5-11.0) H 05/03/16 06:16 RBC 3.26 M/mm3 (3.65-5.03) L 05/03/16 06:16 Hgb 9.1 gm/dl (10.1-14.3) L 05/03/16 06:16 Hct 30.2 % (30.3-42.9) L D 05/03/16 06:16 MCV 87 fl (79-97) 05/03/16 06:16 MCH 28 pg (28-32) 05/03/16 06:16 MCHC 32 % (30-34) 05/03/16 06:16 RDW 14.4 % (13.2-15.2) 05/03/16 06:16 Plt Count 230 K/mm3 (140-440) 05/03/16 06:16 Lymph % (Auto) 11.4 % (13.4-35.0) L 05/03/16 06:16 [place] % (Auto) 5.0 % (0.0-7.3) 05/03/16 06:16 Eos % (Auto) 0.2 % (0.0-4.3) 05/03/16 06:16 Baso % (Auto) 0.2 % (0.0-1.8) 05/03/16 06:16 Lymph # 2.2 K/mm3 (1.2-5.4) 05/03/16 06:16 [place] # 1.0 K/mm3 (0.0-0.8) H 05/03/16 06:16 Eos # 0.0 K/mm3 (0.0-0.4) 05/03/16 06:16 Baso # 0.0 K/mm3 (0.0-0.1) 05/03/16 06:16 Seg Neutrophils % 83.2 % (40.0-70.0) H 05/03/16 06:16 Seg Neutrophils # 16.1 K/mm3 (1.8-7.7) H 05/03/16 06:16 POC ABG pH 7.427 (7.35-7.45) 05/02/16 17:14 POC ABG pCO2 39.7 (35-45) 05/02/16 17:14 POC ABG pO2 76 (80-105) L 05/02/16 17:14 POC ABG HCO3 26.2 05/02/16 17:14 POC ABG Total CO2 27 05/02/16 17:14 POC ABG O2 Sat 95 05/02/16 17:14 POC ABG Base Excess 2 05/02/16 17:14 FiO2 50 % 05/02/16 17:14 Sodium 145 mmol/L (137-145) D 05/03/16 06:16 Potassium 2.9 mmol/L (3.6-5.0) L* 05/03/16 06:16 Chloride 101.8 mmol/L (98-107) 05/03/16 06:16 Carbon Dioxide 27 mmol/L (22-30) 05/03/16 06:16 Anion Gap 19 mmol/L 05/03/16 06:16 BUN 24 mg/dL (7-17) H 05/03/16 06:16 Creatinine 0.9 mg/dL (0.7-1.2) 05/03/16 06:16 Estimated GFR > 60 ml/min 05/03/16 06:16 BUN/Creatinine Ratio 26.66 % 05/03/16 06:16 Glucose 108 mg/dL (65-100) H 05/03/16 06:16 POC Glucose 201 (70-105) H 05/02/16 20:47 Lactic Acid 3.0 mmol/L (0.7-2.0) H* 05/01/16 23:51 Calcium 8.3 mg/dL (8.4-10.2) L 05/03/16 06:16 Total Bilirubin 0.5 mg/dL (0.1-1.2) 05/01/16 23:51 AST 16 units/L (5-40) 05/01/16 23:51 ALT 16 units/L (7-56) 05/01/16 23:51 Alkaline Phosphatase 82 units/L (35-129) 05/01/16 23:51 Total Creatine Kinase 114 units/L (30-135) 05/02/16 08:40 CK-MB (CK-2) 2.5 ng/mL (0.0-4.0) 05/02/16 08:40 CK-MB (CK-2) Rel Index 2.1 (0-4) 05/02/16 08:40 Troponin T 0.014 ng/mL (0.00-0.029) 05/02/16 08:40 NT-Pro-B Natriuret Pep 1924 pg/mL (0-900) H 05/01/16 23:51 Total Protein 7.0 g/dL (6.3-8.2) 05/01/16 23:51 Albumin 3.1 g/dL (3.9-5) L 05/01/16 23:51 Albumin/Globulin Ratio 0.8 % 05/01/16 23:51 Triglycerides 136 mg/dL (2-149) 05/02/16 02:33 Cholesterol 238 mg/dL (50-199) H 05/02/16 02:33 LDL Cholesterol Direct 140 mg/dL (50-130) H 05/02/16 02:33 HDL Cholesterol 71 mg/dL (40-59) H 05/02/16 02:33 Cholesterol/HDL Ratio 3.35 % 05/02/16 02:33 Urine Color Yellow (Yellow) 05/02/16 00:18 Urine Turbidity Clear (Clear) 05/02/16 00:18 Urine pH 6.0 (5.0-7.0) 05/02/16 00:18 Ur Specific [place] 1.009 (1.003-1.030) 05/02/16 00:18 Urine Protein >500 mg/dL (Negative) 05/02/16 00:18 Urine Glucose (UA) >=500 mg/dL (Negative) 05/02/16: Urine Ketones Neg mg/dL (Negative) 05/02/16: Urine Blood Sm (Negative) 05/02/16:18 Urine Nitrite Neg (Negative) 05/02/16 00:18 Urine Bilirubin Neg (Negative) 05/02/16: Urine Urobilinogen < 2.0 mg/dL (<2.0) 05/02/16 00:18 Ur Leukocyte Esterase Neg (Negative) 05/02/16 00:18 Urine WBC (Auto) < 1.0 /HPF (0.0-6.0) 05/02/16 00:18 Urine RBC (Auto) 4.0 /HPF (0.0-6.0) 05/02/16 00:18
[2016-05-04 06:10] LABS: Hematocrit 27.5 % (30.3-42.9); Mean Corpuscular HGB Conc 33 % (30-34); Mean Corpuscular Hemoglobin 28 pg (28-32); Mean Corpuscular Volume 86 fl (79-97); Platelet Count 215 K/mm3 (140-440); Red Blood Count 3.19 M/mm3 (3.65-5.03); Red Cell Distribution Width 14.3 % (13.2-15.2); White Blood Count 10.6 K/mm3 (4.5-11.0)
[2016-05-04] MEDS: LASIX IV SCH ×2 (06:25→18:57)
[2016-05-04 06:47] LABS: Anion Gap 15 mmol/L; BUN/Creatinine Ratio 26.25; Blood Urea Nitrogen 21 mg/dL (7-17); Calcium 8.2 mg/dL (8.4-10.2); Carbon Dioxide 28 mmol/L (22-30); Chloride 104.1 mmol/L (98-107); Glucose 109 mg/dL (65-100); Magnesium 1.8 mg/dL (1.7-2.3); Phosphorous 3.8 mg/dL (2.5-4.5); Sodium 143 mmol/L (137-145)
[2016-05-04 06:52] LABS: Potassium 3.6 mmol/L (3.6-5.0)
--- NOTE | 2016-05-04 10:06 | Progress Note ---
Assessment and Plan Acute respiratory failure Possible Pneumonia Right Pleural effusion Chronic Systolic Heart failure Dilated Nonischemic cardiomyopathy EF 20-25% on echo this admission Presence of AICD Hypertension COPD Recommendations: Continue medical therapy for chronic systolic heart failure. Is and Os Daily weights Fluid restriction Subjective Date of service: 05/04/16 Interval history: Patient reports shortness of breath is less; remains on high flow oxygen. She denies chest pain. Objective Vital Signs Temp Pulse Pulse Resp BP BP Pulse Ox 05/04/16 08:00 97.5 F L 69 20 149/75 98 05/04/16 07:55 99 05/04/16 04:20 97.9 F 70 24 144/77 99 05/04/16 00:15 98.9 F 74 20 151/68 99 05/03/16 23:20 74 22 100 05/03/16 22:00 98 05/03/16 20:15 99.6 F 82 20 152/67 98 05/03/16 19:45 82 05/03/16 18:06 81 05/03/16 16:00 99.2 F 81 76 20 172/81 153/78 94 05/03/16 14:00 81 05/03/16 13:52 94 05/03/16 12:00 98.3 F 81 20 168/81 95 - Physical Examination General: No Apparent Distress HEENT: Positive: PERRL Neck: Positive: trachea midline Cardiac: Positive: Other (paced) Lungs: Positive: Decreased Breath Sounds Neuro: Positive: Grossly Intact - Labs and Meds CBC 05/04/16 Range/Units 04:42 WBC 10.6 (4.5-11.0) K/mm3 RBC 3.19 L (3.65-5.03) M/mm3 Hgb 9.0 L (10.1-14.3) gm/dl Hct 27.5 L (30.3-42.9) % Plt Count 215 (140-440) K/mm3 Comprehensive Metabolic Panel 05/04/16 Range/Units 04:42 Sodium 143 (137-145) mmol/L Potassium 3.6 D (3.6-5.0) mmol/L Chloride 104.1 (98-107) mmol/L Carbon Dioxide 28 (22-30) mmol/L BUN 21 H (7-17) mg/dL Creatinine 0.8 (0.7-1.2) mg/dL Glucose 109 H (65-100) mg/dL Calcium 8.2 L (8.4-10.2) mg/dL - Imaging and Cardiology EKG: image reviewed
[2016-05-04] MEDS: COREG PO SCH ×2 (10:48→21:35)
[2016-05-04] MEDS: NOVOLOG SUB-Q SCH ×6 (10:50→18:56)
[2016-05-04] MEDS: ZESTRIL PO SCH (10:52)
[2016-05-04] MEDS: PROTONIX PO SCH (10:52)
[2016-05-04] MEDS: LOVENOX SUB-Q SCH (10:52)
[2016-05-04] MEDS: BABY ASPIRIN PO SCH (10:53)
[2016-05-04] MEDS: GLUCOPHAGE PO SCH ×2 (10:53→21:34)
--- NOTE | 2016-05-04 12:09 | Progress Note ---
Assessment and Plan 56 y/o female with acute hypoxic respiratory failure, thought secondary to volume overload. 1. Agree with continued diuresis as recommended by cards 2. Improvement in CXR with diuresis, proves further that this is not pneumonia 3. Would be happy to follow as an outpatient 4. Wean FiO2 to off as patient is not on oxygen at home but would assess prior to discharge. 5. Will see as needed over the weekend. Subjective Date of service: 05/04/16 Interval history: Down to 12/17 on HFNC with sat of 99. Walking around in room off oxygen presently. Does not appear in distress. Significant improvement in Pulmonary edema Objective Vital Signs - 12hr 05/04/16 05/04/16 05/04/16 00:15 04:20 07:55 Temperature 98.9 F 97.9 F Pulse Rate Pulse Rate [ 74 70 Left From Monitor] Respiratory 20 24 Rate Blood Pressure Blood Pressure 151/68 144/77 [Left Arm] O2 Sat by Pulse 99 99 99 Oximetry 05/04/16 05/04/16 05/04/16 08:00 10:00 10:48 Temperature 97.5 F L Pulse Rate 69 67 Pulse Rate [ 69 Left From Monitor] Respiratory 20 22 Rate Blood Pressure Blood Pressure 149/75 [Left Arm] O2 Sat by Pulse 98 97 Oximetry 05/04/16 10:52 Temperature Pulse Rate 69 Pulse Rate [ Left From Monitor] Respiratory Rate Blood Pressure 149/75 Blood Pressure [Left Arm] O2 Sat by Pulse Oximetry Constitutional: no acute distress, alert, other (well nourished, well developed. Obese black female) Eyes: non-icteric ENT: oropharynx moist Neck: supple Effort: normal Ascultation: Bilateral: diminished breath sounds, rales (right greater than left ) Percussion: Bilateral: not dull Cardiovascular: regular rate and rhythm Gastrointestinal: normoactive bowel sounds Integumentary: normal Extremities: edema (trace to 1 +) Neurologic: normal mental status, non-focal exam Psychiatric: mood appropriate, affect normal CBC and BMP: 05/04/16 04:42 05/04/16 04:42 ABG, PT/INR, D-dimer: ABG POC ABG pH 7.427 (7.35-7.45) 05/02/16 17:14 POC ABG pCO2 39.7 (35-45) 05/02/16 17:14 POC ABG pO2 76 (80-105) L 05/02/16 17:14 POC ABG HCO3 26.2 05/02/16 17:14 POC ABG Total CO2 27 05/02/16 17:14 POC ABG O2 Sat 95 05/02/16 17:14 Abnormal lab findings: Abnormal Labs 05/02/16 05/02/16 05/02/16 02:33 08:18 11:42 WBC RBC Hgb Hct Lymph % (Auto) [place] # Seg Neutrophils % Seg Neutrophils # POC ABG pO2 Potassium BUN Glucose POC Glucose 368 H 260 H Calcium Total Creatine Kinase 148 H Troponin T 0.030 H D Cholesterol 238 H LDL Cholesterol Direct 140 H HDL Cholesterol 71 H 05/02/16 05/02/16 05/02/16 16:22 17:14 20:47 WBC RBC Hgb Hct Lymph % (Auto) [place] # Seg Neutrophils % Seg Neutrophils # POC ABG pO2 76 L Potassium BUN Glucose POC Glucose 57 L 201 H Calcium Total Creatine Kinase Troponin T Cholesterol LDL Cholesterol Direct HDL Cholesterol 05/03/16 05/03/16 05/04/16 06:16 06:16 04:42 WBC 19.3 H RBC 3.26 L 3.19 L Hgb 9.1 L 9.0 L Hct 30.2 L D 27.5 L Lymph % (Auto) 11.4 L [place] # 1.0 H Seg Neutrophils % 83.2 H Seg Neutrophils # 16.1 H POC ABG pO2 Potassium 2.9 L* BUN 24 H Glucose 108 H POC Glucose Calcium 8.3 L Total Creatine Kinase Troponin T Cholesterol LDL Cholesterol Direct HDL Cholesterol 05/04/16 04:42 WBC RBC Hgb Hct Lymph % (Auto) [place] # Seg Neutrophils % Seg Neutrophils # POC ABG pO2 Potassium BUN 21 H Glucose 109 H POC Glucose Calcium 8.2 L Total Creatine Kinase Troponin T Cholesterol LDL Cholesterol Direct HDL Cholesterol
--- NOTE | 2016-05-04 18:24 | Progress Note ---
Assessment and Plan Assessment and plan: Acute respiratory failure with hypoxia, due to CHF exacerbation. On supplemental oxygen. Now n high flow Oxygen at 10l/min. He was evaluated by Staff Rn Acute on chronic systolic CHF. Cont Lasix, Coreg, Digoxin. Cardiology folllowing Hypertension. Blood pressure stable Pulmonary hypertension. Hyperlipidemia Peripheral vascular disease DVT prophylaxis with Heparin Full code status History Interval history: less shortness of breath, no chest pain Hospitalist Physical - Physical exam Narrative exam: Gen: not in acute distress,obese HEENT: normocephalic,atraumatic Neck :supple, no JVD Lungs: bilateral rales, no wheezes Heart: S1 and S2 regular, no murmurs no gallops,no rubs Abdomen: soft nontender, nondistended, normal bowel sounds Extremities: edema bilateral lower ext, no clubbing, no cyanosis Neuro: Awake alert oriented x 3, no focal signs Psych:normal mood P - Constitutional Vitals: Temp Pulse Resp BP Pulse Ox 97.9 F 79 20 153/84 97 05/04/16 12:00 05/04/16 12:00 05/04/16 12:00 05/04/16 12:00 05/04/16 12:00 General appearance: Present: no acute distress Results - Labs CBC & Chem 7: 05/04/16 04:42 05/04/16 04:42 Labs: Laboratory Last Values WBC 10.6 K/mm3 (4.5-11.0) 05/04/16 04:42 RBC 3.19 M/mm3 (3.65-5.03) L 05/04/16 04:42 Hgb 9.0 gm/dl (10.1-14.3) L 05/04/16 04:42 Hct 27.5 % (30.3-42.9) L 05/04/16 04:42 MCV 86 fl (79-97) 05/04/16 04:42 MCH 28 pg (28-32) 05/04/16 04:42 MCHC 33 % (30-34) 05/04/16 04:42 RDW 14.3 % (13.2-15.2) 05/04/16 04:42 Plt Count 215 K/mm3 (140-440) 05/04/16 04:42 Lymph % (Auto) 11.4 % (13.4-35.0) L 05/03/16 06:16 [place] % (Auto) 5.0 % (0.0-7.3) 05/03/16 06:16 Eos % (Auto) 0.2 % (0.0-4.3) 05/03/16 06:16 Baso % (Auto) 0.2 % (0.0-1.8) 05/03/16 06:16 Lymph # 2.2 K/mm3 (1.2-5.4) 05/03/16 06:16 [place] # 1.0 K/mm3 (0.0-0.8) H 05/03/16 06:16 Eos # 0.0 K/mm3 (0.0-0.4) 05/03/16 06:16 Baso # 0.0 K/mm3 (0.0-0.1) 05/03/16 06:16 Seg Neutrophils % 83.2 % (40.0-70.0) H 05/03/16 06:16 Seg Neutrophils # 16.1 K/mm3 (1.8-7.7) H 05/03/16 06:16 POC ABG pH 7.427 (7.35-7.45) 05/02/16 17:14 POC ABG pCO2 39.7 (35-45) 05/02/16 17:14 POC ABG pO2 76 (80-105) L 05/02/16 17:14 POC ABG HCO3 26.2 05/02/16 17:14 POC ABG Total CO2 27 05/02/16 17:14 POC ABG O2 Sat 95 05/02/16 17:14 POC ABG Base Excess 2 05/02/16 17:14 FiO2 50 % 05/02/16 17:14 Sodium 143 mmol/L (137-145) 05/04/16 04:42 Potassium 3.6 mmol/L (3.6-5.0) D 05/04/16 04:42 Chloride 104.1 mmol/L (98-107) 05/04/16 04:42 Carbon Dioxide 28 mmol/L (22-30) 05/04/16 04:42 Anion Gap 15 mmol/L 05/04/16 04:42 BUN 21 mg/dL (7-17) H 05/04/16 04:42 Creatinine 0.8 mg/dL (0.7-1.2) 05/04/16 04:42 Estimated GFR > 60 ml/min 05/04/16 04:42 BUN/Creatinine Ratio 26.25 % 05/04/16 04:42 Glucose 109 mg/dL (65-100) H 05/04/16 04:42 POC Glucose 201 (70-105) H 05/02/16 20:47 Lactic Acid 3.0 mmol/L (0.7-2.0) H* 05/01/16 23:51 Calcium 8.2 mg/dL (8.4-10.2) L 05/04/16 04:42 Phosphorus 3.8 mg/dL (2.5-4.5) 05/04/16 04:42 Magnesium 1.8 mg/dL (1.7-2.3) 05/04/16 04:42 Total Bilirubin 0.5 mg/dL (0.1-1.2) 05/01/16 23:51 AST 16 units/L (5-40) 05/01/16 23:51 ALT 16 units/L (7-56) 05/01/16 23:51 Alkaline Phosphatase 82 units/L (35-129) 05/01/16 23:51 Total Creatine Kinase 114 units/L (30-135) 05/02/16 08:40 CK-MB (CK-2) 2.5 ng/mL (0.0-4.0) 05/02/16 08:40 CK-MB (CK-2) Rel Index 2.1 (0-4) 05/02/16 08:40 Troponin T 0.014 ng/mL (0.00-0.029) 05/02/16 08:40 NT-Pro-B Natriuret Pep 1924 pg/mL (0-900) H 05/01/16 23:51 Total Protein 7.0 g/dL (6.3-8.2) 05/01/16 23:51 Albumin 3.1 g/dL (3.9-5) L 05/01/16 23:51 Albumin/Globulin Ratio 0.8 % 05/01/16 23:51 Triglycerides 136 mg/dL (2-149) 05/02/16 02:33 Cholesterol 238 mg/dL (50-199) H 05/02/16 02:33 LDL Cholesterol Direct 140 mg/dL (50-130) H 05/02/16 02:33 HDL Cholesterol 71 mg/dL (40-59) H 05/02/16 02:33 Cholesterol/HDL Ratio 3.35 % 05/02/16 02:33 Urine Color Yellow (Yellow) 05/02/16 00:18 Urine Turbidity Clear (Clear) 05/02/16 00:18 Urine pH 6.0 (5.0-7.0) 05/02/16 00:18 Ur Specific [place] 1.009 (1.003-1.030) 05/02/16 00:18 Urine Protein >500 mg/dL (Negative) 05/02/16 00:18 Urine Glucose (UA) >=500 mg/dL (Negative) 05/02/16:18 Urine Ketones Neg mg/dL (Negative) 05/02/16 00:18 Urine Blood Sm (Negative) 05/02/16 00:18 Urine Nitrite Neg (Negative) 05/02/16 00:18 Urine Bilirubin Neg (Negative) 05/02/16 00:18 Urine Urobilinogen < 2.0 mg/dL (<2.0) 05/02/16 00:18 Ur Leukocyte Esterase Neg (Negative) 05/02/16 00:18 Urine WBC (Auto) < 1.0 /HPF (0.0-6.0) 05/02/16:18 Urine RBC (Auto) 4.0 /HPF (0.0-6.0) 05/02/16 00:18
[2016-05-04] MEDS: LANOXIN PO SCH (18:57)
[2016-05-04] MEDS: ZOCOR PO SCH (21:34)
[2016-05-05] MEDS: LEVEMIR SUB-Q SCH ×2 (00:13→22:42)
[2016-05-05] MEDS: NOVOLOG SUB-Q SCH ×8 (00:13→22:41)
[2016-05-05] MEDS: LASIX IV SCH ×2 (06:45→18:37)
[2016-05-05] MEDS: ALDACTONE PO SCH (10:08)
[2016-05-05] MEDS: GLUCOPHAGE PO SCH ×2 (10:09→22:40)
[2016-05-05] MEDS: ZESTRIL PO SCH (10:09)
[2016-05-05] MEDS: BABY ASPIRIN PO SCH (10:09)
[2016-05-05] MEDS: PROTONIX PO SCH (10:09)
[2016-05-05] MEDS: COREG PO SCH ×2 (10:09→22:41)
[2016-05-05] MEDS: LOVENOX SUB-Q SCH (10:10)
[2016-05-05] MEDS ORDERED: PNEUMOVAX 23 IM ONE (10:29)
[2016-05-05] MEDS ORDERED: FLUARIX QUAD 2016-2017(36 MOS+) IM ONE (10:29)
--- NOTE | 2016-05-05 12:47 | Progress Note ---
Assessment and Plan - Patient Problems (1) CHF (congestive heart failure) Current Visit: Yes Status: Acute Qualifiers: Congestive heart failure type: systolic Congestive heart failure chronicity : acute Qualified Code(s): I50.21 - Acute systolic (congestive) heart failure Plan to address problem: Medical therapy for nonischemic cardiomyopathy and chronic systolic heart failure. Subjective Date of service: 05/05/16 Interval history: Patient is comfortable, no acute distress. No new cardiac complaints. Objective Vital Signs Temp Pulse Pulse Pulse Resp BP BP 05/05/16 10:34 78 18 05/05/16 10:08 78 205/98 05/05/16 10:00 05/05/16 08:20 98.2 F 84 20 205/98 05/05/16 04:25 98.5 F 75 18 181/91 05/05/16 02:00 83 05/05/16 00:15 97.5 F L 73 20 168/86 05/04/16 22:29 05/04/16 20:15 98.5 F 79 18 184/86 05/04/16 18:57 131 H 05/04/16 16:00 98.9 F 118 H 20 184/84 Pulse Ox 05/05/16 10:34 98 05/05/16 10:08 05/05/16 10:00 100 05/05/16 08:20 95 05/05/16 04:25 94 05/05/16 02:00 05/05/16 00:15 100 05/04/16 22:29 99 05/04/16 20:15 98 05/04/16 18:57 05/04/16 16:00 100 - Physical Examination General: No Apparent Distress HEENT: Positive: PERRL Neck: Positive: trachea midline Cardiac: Positive: Reg Rate and Rhythm Lungs: Positive: Decreased Breath Sounds Neuro: Positive: Grossly Intact Abdomen: Positive: Soft Skin: Positive: Clear Extremities: Absent: edema - Imaging and Cardiology EKG: image reviewed
--- NOTE | 2016-05-05 13:18 | Progress Note ---
Assessment and Plan 56 y/o female with acute hypoxic respiratory failure, thought secondary to volume overload. 1. Agree with continued diuresis as recommended by cards 2. Improvement in CXR with diuresis, proves further that this is not pneumonia 3. Would be happy to follow as an outpatient 4. Pulm status continues to improve. All related to volume. Will sign off. Call if questions. Subjective Date of service: 05/05/16 Interval history: No acute events. Weaned to room air. Objective Vital Signs - 12hr 05/05/16 05/05/16 05/05/16 02:00 04:25 08:20 Temperature 98.5 F 98.2 F Pulse Rate 83 Pulse Rate [ Left From Monitor] Pulse Rate [ 75 84 Left Radial] Respiratory 18 20 Rate Blood Pressure Blood Pressure 181/91 205/98 [Left Arm] O2 Sat by Pulse 94 95 Oximetry 05/05/16 05/05/16 05/05/16 10:00 10:08 10:34 Temperature Pulse Rate 78 Pulse Rate [ 78 Left From Monitor] Pulse Rate [ Left Radial] Respiratory 18 Rate Blood Pressure 205/98 Blood Pressure [Left Arm] O2 Sat by Pulse 100 98 Oximetry Constitutional: no acute distress, alert, other (well nourished, well developed. Obese black female) Eyes: non-icteric ENT: oropharynx moist Neck: supple Effort: normal Ascultation: Bilateral: diminished breath sounds, rales (right greater than left ) Percussion: Bilateral: not dull Cardiovascular: regular rate and rhythm Gastrointestinal: normoactive bowel sounds Integumentary: normal Extremities: edema (trace to 1 +) Neurologic: normal mental status, non-focal exam Psychiatric: mood appropriate, affect normal CBC and BMP: 05/04/16 04:42 05/04/16 04:42 ABG, PT/INR, D-dimer: ABG POC ABG pH 7.427 (7.35-7.45) 05/02/16 17:14 POC ABG pCO2 39.7 (35-45) 05/02/16 17:14 POC ABG pO2 76 (80-105) L 05/02/16 17:14 POC ABG HCO3 26.2 05/02/16 17:14 POC ABG Total CO2 27 05/02/16 17:14 POC ABG O2 Sat 95 05/02/16 17:14 Abnormal lab findings: Abnormal Labs 05/02/16 05/02/16 05/02/16 02:33 08:18 11:42 WBC RBC Hgb Hct Lymph % (Auto) [place] # Seg Neutrophils % Seg Neutrophils # POC ABG pO2 Potassium BUN Glucose POC Glucose 368 H 260 H Calcium Total Creatine Kinase 148 H Troponin T 0.030 H D Cholesterol 238 H LDL Cholesterol Direct 140 H HDL Cholesterol 71 H 05/02/16 05/02/16 05/02/16 16:22 17:14 20:47 WBC RBC Hgb Hct Lymph % (Auto) [place] # Seg Neutrophils % Seg Neutrophils # POC ABG pO2 76 L Potassium BUN Glucose POC Glucose 57 L 201 H Calcium Total Creatine Kinase Troponin T Cholesterol LDL Cholesterol Direct HDL Cholesterol 05/03/16 05/03/16 05/04/16 06:16 06:16 04:42 WBC 19.3 H RBC 3.26 L 3.19 L Hgb 9.1 L 9.0 L Hct 30.2 L D 27.5 L Lymph % (Auto) 11.4 L [place] # 1.0 H Seg Neutrophils % 83.2 H Seg Neutrophils # 16.1 H POC ABG pO2 Potassium 2.9 L* BUN 24 H Glucose 108 H POC Glucose Calcium 8.3 L Total Creatine Kinase Troponin T Cholesterol LDL Cholesterol Direct HDL Cholesterol 05/04/16 04:42 WBC RBC Hgb Hct Lymph % (Auto) [place] # Seg Neutrophils % Seg Neutrophils # POC ABG pO2 Potassium BUN 21 H Glucose 109 H POC Glucose Calcium 8.2 L Total Creatine Kinase Troponin T Cholesterol LDL Cholesterol Direct HDL Cholesterol
[2016-05-05] MEDS: LANOXIN PO SCH (18:36)
--- NOTE | 2016-05-05 18:54 | Progress Note ---
Hospitalist Physical - Constitutional Vitals: Temp Pulse Resp BP Pulse Ox 98.2 F 80 18 154/74 98 05/05/16 08:20 05/05/16 18:36 05/05/16 10:34 05/05/16 18:36 05/05/16 10:34 General appearance: Present: no acute distress Results - Labs CBC & Chem 7: 05/04/16 04:42 05/04/16 04:42 Labs: Laboratory Last Values WBC 10.6 K/mm3 (4.5-11.0) 05/04/16 04:42 RBC 3.19 M/mm3 (3.65-5.03) L 05/04/16 04:42 Hgb 9.0 gm/dl (10.1-14.3) L 05/04/16 04:42 Hct 27.5 % (30.3-42.9) L 05/04/16 04:42 MCV 86 fl (79-97) 05/04/16 04:42 MCH 28 pg (28-32) 05/04/16 04:42 MCHC 33 % (30-34) 05/04/16 04:42 RDW 14.3 % (13.2-15.2) 05/04/16 04:42 Plt Count 215 K/mm3 (140-440) 05/04/16 04:42 Lymph % (Auto) 11.4 % (13.4-35.0) L 05/03/16 06:16 [place] % (Auto) 5.0 % (0.0-7.3) 05/03/16 06:16 Eos % (Auto) 0.2 % (0.0-4.3) 05/03/16 06:16 Baso % (Auto) 0.2 % (0.0-1.8) 05/03/16 06:16 Lymph # 2.2 K/mm3 (1.2-5.4) 05/03/16 06:16 [place] # 1.0 K/mm3 (0.0-0.8) H 05/03/16 06:16 Eos # 0.0 K/mm3 (0.0-0.4) 05/03/16 06:16 Baso # 0.0 K/mm3 (0.0-0.1) 05/03/16 06:16 Seg Neutrophils % 83.2 % (40.0-70.0) H 05/03/16 06:16 Seg Neutrophils # 16.1 K/mm3 (1.8-7.7) H 05/03/16 06:16 POC ABG pH 7.427 (7.35-7.45) 05/02/16 17:14 POC ABG pCO2 39.7 (35-45) 05/02/16 17:14 POC ABG pO2 76 (80-105) L 05/02/16 17:14 POC ABG HCO3 26.2 05/02/16 17:14 POC ABG Total CO2 27 05/02/16 17:14 POC ABG O2 Sat 95 05/02/16 17:14 POC ABG Base Excess 2 05/02/16 17:14 FiO2 50 % 05/02/16 17:14 Sodium 143 mmol/L (137-145) 05/04/16 04:42 Potassium 3.6 mmol/L (3.6-5.0) D 05/04/16 04:42 Chloride 104.1 mmol/L (98-107) 05/04/16 04:42 Carbon Dioxide 28 mmol/L (22-30) 05/04/16 04:42 Anion Gap 15 mmol/L 05/04/16 04:42 BUN 21 mg/dL (7-17) H 05/04/16 04:42 Creatinine 0.8 mg/dL (0.7-1.2) 05/04/16 04:42 Estimated GFR > 60 ml/min 05/04/16 04:42 BUN/Creatinine Ratio 26.25 % 05/04/16 04:42 Glucose 109 mg/dL (65-100) H 05/04/16 04:42 POC Glucose 201 (70-105) H 05/02/16 20:47 Lactic Acid 3.0 mmol/L (0.7-2.0) H* 05/01/16 23:51 Calcium 8.2 mg/dL (8.4-10.2) L 05/04/16 04:42 Phosphorus 3.8 mg/dL (2.5-4.5) 05/04/16 04:42 Magnesium 1.8 mg/dL (1.7-2.3) 05/04/16 04:42 Total Bilirubin 0.5 mg/dL (0.1-1.2) 05/01/16 23:51 AST 16 units/L (5-40) 05/01/16 23:51 ALT 16 units/L (7-56) 05/01/16 23:51 Alkaline Phosphatase 82 units/L (35-129) 05/01/16 23:51 Total Creatine Kinase 114 units/L (30-135) 05/02/16 08:40 CK-MB (CK-2) 2.5 ng/mL (0.0-4.0) 05/02/16 08:40 CK-MB (CK-2) Rel Index 2.1 (0-4) 05/02/16 08:40 Troponin T 0.014 ng/mL (0.00-0.029) 05/02/16 08:40 NT-Pro-B Natriuret Pep 1924 pg/mL (0-900) H 05/01/16 23:51 Total Protein 7.0 g/dL (6.3-8.2) 05/01/16 23:51 Albumin 3.1 g/dL (3.9-5) L 05/01/16 23:51 Albumin/Globulin Ratio 0.8 % 05/01/16 23:51 Triglycerides 136 mg/dL (2-149) 05/02/16 02:33 Cholesterol 238 mg/dL (50-199) H 05/02/16 02:33 LDL Cholesterol Direct 140 mg/dL (50-130) H 05/02/16 02:33 HDL Cholesterol 71 mg/dL (40-59) H 05/02/16 02:33 Cholesterol/HDL Ratio 3.35 % 05/02/16 02:33 Urine Color Yellow (Yellow) 05/02/16 00:18 Urine Turbidity Clear (Clear) 05/02/16 00:18 Urine pH 6.0 (5.0-7.0) 05/02/16 00:18 Ur Specific [place] 1.009 (1.003-1.030) 05/02/16 00:18 Urine Protein >500 mg/dL (Negative) 05/02/16 00:18 Urine Glucose (UA) >=500 mg/dL (Negative) 05/02/16 00:18 Urine Ketones Neg mg/dL (Negative) 05/02/16 00:18 Urine Blood Sm (Negative) 05/02/16 00:18 Urine Nitrite Neg (Negative) 05/02/16 00:18 Urine Bilirubin Neg (Negative) 05/02/16 00:18 Urine Urobilinogen < 2.0 mg/dL (<2.0) 05/02/16 00:18 Ur Leukocyte Esterase Neg (Negative) 05/02/16 00:18 Urine WBC (Auto) < 1.0 /HPF (0.0-6.0) 05/02/16 00:18 Urine RBC (Auto) 4.0 /HPF (0.0-6.0) 05/02/16 00:18
[2016-05-05] MEDS: TYLENOL PO PRN (20:20)
[2016-05-05] MEDS: ZOCOR PO SCH (22:41)
[2016-05-06] MEDS: LASIX IV SCH (06:33)
[2016-05-06] MEDS ORDERED: FLUARIX QUAD 2016-2017(36 MOS+) IM ONE (07:30)
[2016-05-06 08:03] LABS: Anion Gap 21 mmol/L; BUN/Creatinine Ratio 22.85; Blood Urea Nitrogen 16 mg/dL (7-17); Calcium 8.6 mg/dL (8.4-10.2); Carbon Dioxide 28 mmol/L (22-30); Chloride 99.1 mmol/L (98-107); Glucose 128 mg/dL (65-100); Potassium 3.7 mmol/L (3.6-5.0); Sodium 144 mmol/L (137-145)
[2016-05-06] MEDS: LOVENOX SUB-Q SCH (10:00)
[2016-05-06] MEDS: GLUCOPHAGE PO SCH (10:00)
[2016-05-06] MEDS: PROTONIX PO SCH (10:01)
[2016-05-06] MEDS: COREG PO SCH (10:01)
[2016-05-06] MEDS: BABY ASPIRIN PO SCH (10:01)
[2016-05-06] MEDS: ALDACTONE PO SCH (10:01)
[2016-05-06] MEDS: ZESTRIL PO SCH (10:02)
[2016-05-06] MEDS: NOVOLOG SUB-Q SCH ×2 (10:03)
[2016-05-06] MEDS: ZOFRAN IV PRN (10:15)
[2016-05-06] MEDS: TYLENOL PO PRN (10:16)
--- NOTE | 2016-05-06 10:55 | Discharge Summary ---
Providers - Providers Date of Admission: 05/02/16 02:13 Date of discharge: 05/06/16 Attending physician: ZOEY BUCHANAN Primary care physician: [employer] Hospitalization Condition: Fair Disposition: DISCHARGED TO HOME OR SELFCARE Exam - Constitutional Vitals: Temp Pulse Resp BP Pulse Ox 98.0 F 74 18 162/79 99 05/06/16 07:50 05/06/16 10:01 05/06/16 07:50 05/06/16 10:01 05/06/16 09:27 Plan Activity: advance as tolerated Diet: low fat, low cholesterol, low salt Additional Instructions: 1.Follow up with PCP in 1 week. 2.Follow up with Cardiology in 1 week Follow up with: PRIMARY CARE, [Primary Care Provider] - 3-5 Days Prescriptions: Aspirin EC [Aspirin Enteric Coated TAB] 81 mg PO QDAY #30 tablet. Spironolactone [Aldactone] 25 mg PO QDAY #30 tablet
[2016-05-06 13:15] VITALS: BP 173/86
--- NOTE | 2016-05-06 13:44 | Progress Note ---
Assessment and Plan - Patient Problems (1) CHF (congestive heart failure) Current Visit: Yes Status: Acute Qualifiers: Congestive heart failure type: systolic Congestive heart failure chronicity : acute Qualified Code(s): I50.21 - Acute systolic (congestive) heart failure Plan to address problem: Medical therapy for nonischemic cardiomyopathy and chronic systolic heart failure. Patient is stable for cardiac discharge. Subjective Date of service: 05/06/16 Interval history: Patient is comfortable, no acute respiratory distress. No cardiac complaints. Objective Vital Signs Temp Pulse Pulse Pulse Resp BP BP 05/06/16 11:57 74 05/06/16 11:35 97.7 F 76 18 173/86 05/06/16 10:01 74 162/79 05/06/16 10:00 76 18 05/06/16 09:27 05/06/16 07:50 98.0 F 74 18 162/79 05/06/16 04:15 97.8 F 77 20 153/80 05/06/16 02:00 71 05/06/16 01:02 97.9 F 73 20 164/83 05/05/16 22:20 87 29 H 05/05/16 22:00 05/05/16 21:38 98.8 F 78 20 175/84 05/05/16 20:10 05/05/16 18:36 80 154/74 05/05/16 18:00 74 05/05/16 17:40 98.9 F 80 20 154/74 Pulse Ox 05/06/16 11:57 05/06/16 11:35 96 05/06/16 10:01 05/06/16 10:00 96 05/06/16 09:27 99 05/06/16 07:50 99 05/06/16 04:15 98 05/06/16 02:00 05/06/16 01:02 100 05/05/16 22:20 98 05/05/16 22:00 98 05/05/16 21:38 97 05/05/16 20:10 93 05/05/16 18:36 05/05/16 18:00 05/05/16 17:40 96 - Physical Examination General: Appears Well, No Apparent Distress HEENT: Positive: PERRL Neck: Positive: trachea midline Cardiac: Positive: Reg Rate and Rhythm Lungs: Positive: Decreased Breath Sounds Neuro: Positive: Grossly Intact Abdomen: Positive: Soft Skin: Positive: Clear Extremities: Absent: edema - Labs and Meds Comprehensive Metabolic Panel 05/06/16 Range/Units 07:06 Carbon Dioxide 28 (22-30) mmol/L BUN 16 (7-17) mg/dL Creatinine 0.7 (0.7-1.2) mg/dL Glucose 128 H (65-100) mg/dL Calcium 8.6 (8.4-10.2) mg/dL - Imaging and Cardiology EKG: image reviewed
== END 2016-05-06 14:00 | disposition home or self-care (01) | DRG 291 ==
LOC: ED 23:15 → 4A 05-02 02:13
PROVIDERS: ADMIT Internal Medicine; ATTEND Internal Medicine
PROC: 4A033R1 Measurement of Arterial Saturation, Peripheral, Percutaneous Approach (ICD-10-PCS; principal; 2016-05-01)
PROC: 4A033R1 Measurement of Arterial Saturation, Peripheral, Percutaneous Approach (ICD-10-PCS; 2016-05-02)
PROC: 5A09357 Assistance with Respiratory Ventilation, Less than 24 Consecutive Hours, Continuous Positive Airway Pressure (ICD-10-PCS; 2016-05-02)
DX: I11.0 Hypertensive heart disease with heart failure (principal); J96.01 Acute respiratory failure with hypoxia; J96.02 Acute respiratory failure with hypercapnia; E87.2 Acidosis; J44.1 Chronic obstructive pulmonary disease with (acute) exacerbation; E11.52 Type 2 diabetes mellitus with diabetic peripheral angiopathy with gangrene; J44.0 Chronic obstructive pulmonary disease with (acute) lower respiratory infection; I50.23 Acute on chronic systolic (congestive) heart failure; E78.5 Hyperlipidemia, unspecified; I27.2 Other secondary pulmonary hypertension; I42.9 Cardiomyopathy, unspecified; Z95.0 Presence of cardiac pacemaker; Z79.82 Long term (current) use of aspirin; Z79.4 Long term (current) use of insulin; Z82.49 Family history of ischemic heart disease and other diseases of the circulatory system
CPT/HCPCS: 36415; 36600; 71010; 80048; 80053; 80061; 81001; 82140; 82550; 82553; 82803; 82962; 83735; 83880; 84100; 84484; 85025; 85027; 87040; 87400; 90686; 90732; 93005; 93306; 94640; 94660; 94760; 96365; 96367; 96375; J0360; J1650; J1815; J1818; J1940; J1956; J2405; J2930; J3475; J3480

== ENCOUNTER 2016-07-11 19:48 | Emergency (ER) | payer MEDICARE, OTHER ==
[~2016-07-11 19:48] MED LIST: ADRENALIN ONE; SODIUM BICARBONATE IV ONE
[2016-07-11 20:05] VITALS: BP 140/121
[2016-07-11] MEDS ORDERED: NACL 0.9% 1000 ML 1,000 ML IV ONE (20:19)
[2016-07-11] MEDS ORDERED: VASELINE LIP THERAPY TP PRN (20:20)
[2016-07-11] MEDS ORDERED: ARTIFICIAL TEARS OPHTH OINT OU PRN (20:20)
[2016-07-11] MEDS ORDERED: SODIUM BICARBONATE IV ONE (20:30)
[2016-07-11] MEDS ORDERED: ADRENALIN ONE (20:30)
[2016-07-11] MEDS ORDERED: CORDARONE IV ONE (20:30)
[2016-07-11] MEDS ORDERED: LEVOPHED 8 MG in NACL 0.9% 250ML 242 ML IV SCH (20:43)
[2016-07-11] MEDS ORDERED: LEVOPHED DRIP 4 MG/NS 250 ML 4 MG/250 ML BAG IV ONE (20:45)
--- NOTE | 2016-07-11 20:56 | Admit Criteria Form ---
Admission Criteria Documentation: INTENSIVE CARE UNIT ADMISSION Intensive Care Admission Guidelines ( Place 'X' for any and all applicable criteria): Admission to ICU may be indicated when need is demonstrated by ANY ONE of the following (1)(2)(3)(4)(5)(6)(7)(8)(9) : [ ]I. Vital sign abnormalities, including ANY ONE of the following: [ ]a) Systolic arterial pressure less than 90 mm Hg, or 20 mm Hg below the patient's usual pressure [ ]b) Diastolic arterial pressure greater than 120 mm Hg [ ]c) Mean arterial pressure less than 70 mm Hg [A] [ ]d) Pulse less than 40 or greater than 140 beats per minute (in adult) [ ]e) Respiratory rate greater than 35 or less than 8 breaths per minute [ ]II. Laboratory findings (new), including ANY ONE of the following (10): [ ]a) Saturation of arterial oxygen less than 88% or partial pressure of oxygen less than 60 mm Hg (8.0 kPa) despite oxygen supplementation [ ]b) Rising partial pressure of carbon dioxide with respiratory acidosis [ ]c) pH less than 7.2 or greater than 7.65 [ ]d) Serum glucose greater than 800 mg/dL (44.4 mmol/L) [ ]e) Serum sodium less than 110 mEq/L (mmol/L) or greater than 160 mEq/L (mmol/L) [ ]f) Serum potassium less than 2 mEq/L (mmol/L) or greater than 7 mEq /L (mmol/L) [ ]g) Serum calcium greater than 15 mg/dL (3.75 mmol/L) [ ]h) Serum phosphorus less than 1 mg/dL (0.32 mmol/L) [ ]i) Toxic drug level or poisoning causing or likely to cause neurologic or Hemodynamic instability [ ]j) Less severe laboratory abnormalities contributing to ANY ONE of the following: [ ]i) Seizure [ ]ii) Altered mental status [ ]iii) Muscle weakness [ ]iv) Arrhythmias [ ]v) Hemodynamic instability [ ]vi) Other significant clinical manifestations [ ]III. Electrocardiogram (or cardiac monitoring) findings, including ANY ONE of the following: [ ]a) Inherently unstable or life-threatening arrhythmia (eg, sustained ventricular tachycardia, ventricular fibrillation, asystole) [ ]b) Arrhythmia causing severe hypotension (eg, bradycardia, tachycardia) [ ]c) Complete heart block causing severe hypotension [ ]d) Other findings indicative of a need for intensive care (eg , AZ) [X ]IV.Physical findings, including ANY ONE of the following: [ ]a) Threatened airway [ ]b) Sudden altered mental status [ ]c) Repeated or prolonged seizures [ ]d) Coma [ ]e) New-onset anuria (urine output <0.1 mL/kg/hr over 4 h) [ ]f) Cyanosis (new) [ ]g) Cardiac tamponade [ X]h) Status post respiratory or cardiac arrest [ ]i) Severe nathan (eg, partial thickness nathan over more than 10% of body surface, third-degree nathan) [ ]j) Findings consistent with abdominal emergency (eg, peritoneal signs) [ ]V.Imaging findings, such as dissecting aneurysm or ruptured viscus [ ].Specific intervention or monitoring needed, as indicated by ANY ONE of the following: [ ]a) New need for assisted ventilation, invasive or noninvasive(11) [ ]b) New need for intubation (eg, to protect airway) [ ]c) New tracheostomy (less than 48 hours old) [ ]d) Hourly vital signs or neurologic checks [ ]e) Pulmonary artery line monitoring needed [ ]f) Continuous arterial line monitoring needed [ ]g) Continuous IV vasoactive drugs [ ]h) Continuous IV antiarrhythmics [ ]i) Large volume IV fluid resuscitation (eg, greater than 6 L per day ) [ ]j) Large or rapid transfusion needs (eg, more than 6 units within 24 hours) [ ]k) High-risk IV treatment, such as bolus IV medicatns or mannitol infusion [ ]l) Acute cardiac pacing [ ]m) Intra-aortic balloon pump [ ]n) Ventricular assist device [ ]o) Cardioversion [ ]p) Pericardiocentesis [ ]q) Hemodialysis in unstable patient [ ]r) Continuous renal replacement therapy (eg, continuous veno-venous hemofiltration) [ ]s) Peritoneal dialysis initiation [ ]t) Emergency bronchoscopic therapy (eg, for hemoptysis) [ ]u) Emergency endoscopic therapy for bleeding [ ]v) Balloon tamponade for variceal bleeding [ ]w) Intracranial pressure monitoring or tissue oxygen monitoring [ ]x) Ventriculostomy monitoring [ ]y) Treatment of ongoing seizures [ ]z) Induced hypothermia or coma [ ]aa) Ongoing frequent testing and treatment for acute conditions, including ANY ONE of the following: [ ]i) Correction of severe metabolic acidosis/ alkalosis [ ]ii). Severe fluid overload [ ]iii) Cerebral edema [ ]iv) Monitoring or suctioning for respiratory insufficiency or acidosis [ ]v) Monitoring for active bleeding [ ]bb) Rapid desensitization for high-risk hypersensitivity reaction to required medication (eg, penicillin)(12) [ ]cc) Other need for treatment or monitoring not available outside the ICU [ ]VII.Cardiology diagnoses or procedures, including ANY ONE of the following (13)(14)(15)(16)(17): [ ]a) Chest pain with ANY ONE of the following: [ ]i) Hemodynamic instability [ ]ii) Suspicion of diagnoses needing ICU care (eg, aortic dissection) [ ]iii) New unstable or symptomatic arrhythmia or ECG finding (eg, ventricular tachycardia, ventricular fibrillation, advanced heart block) [ ]iv) Syncope or near-syncope [ ]v) SBP less than 100 mm Hg [ ]vi) Pulmonary edema thought to be due to ischemia [ ]vii) New or worsening mitral regurgitation murmur, S3 , or rales [ ]b) Acute AZ with complications as indicated by ANY ONE of the following: [ ]i) Persistent chest pain [ ]ii) Hemodynamic instability [ ]iii) New unstable or symptomatic arrhythmia or ECG finding (eg, ventricular tachycardia, ventricular fibrillation, advanced heart block) [ ]iv) Syncope or near-syncope [ ]v) Pulmonary edema thought to be due to ischemia [ ]vi) New or worsening mitral regurgitation murmur, S3 , or rales [ ]vii) New-onset bundle branch block [ ]viii) Hemorrhagic complication (eg, intracranial or access site bleed following thrombolysis) [ ]c) Cardiac arrhythmia or conduction defect with Hemodynamic instability [ ]d) Complication of cardiac ablation, including ANY ONE of the following(18): [ ]i) Pericardial tamponade [ ]ii) Hemodynamic instability [ ]iii) Thromboembolic stroke [ ]iv) Aortic valve injury [ ]v) Vascular injuries [ ]vi) Esophageal perforation [ ]vii) Severe arrhythmia [ ]viii) Air embolism [ ]ix) Other severe complication [ ]e) Cardiogenic shock [ ]f) Hypertensive emergency, with need for ANY ONE of the following(19): [ ]i) IV antihypertensive therapy [ ]ii) Invasive hemodynamic monitoring (eg, arterial line) [ ]g) Pericardial tamponade [ ]h) Severe heart failure, with ANY ONE of the following(15): [ ]i) Respiratory failure [ ]ii) Cardiogenic shock [ ]iii) Severe arrhythmias [ ]iv) Evidence of cardiac ischemia [ ]i Myocarditis, with ANY ONE of the following [ ]i) Hemodynamic instability [ ]ii) Respiratory failure [ ]iii) Severe arrhythmias [ ]iv) Need for cardiac assist device (eg, left ventricular assist device or extracorporeal membrane oxygenator) [ ]j) Status post cardiac arrest(20) [ ]VIII. Cardiovascular Surgery diagnoses or procedures, including ANY ONE of the following.(21)(22): [ ]a) Acute aortic dissection [ ]b) Aortic surgery for ANY ONE of the following: [ ]i) Thoracic aneurysm [ ]ii) Abdominal aneurysm with ANY ONE of the following(23): [ ]1) Emergency repair [ ]2) Severe cardiopulmonary disease [ ]3) Dialysis-dependent renal failure [ ]4) Need for IV blood pressure control [ ]5) Need for ongoing ventilatory support [ ]6) Perioperative complications, including ANY ONE of the following: [ ]A. Sustained Hemodynamic instability [ ]B. Cardiac ischemia or arrhythmia [ ]C. Hypothermia (less than 35 degrees C (95 degrees F)) [ ]D. Blood transfusion greater than 3 L [ ]iii) Aortic coarctation operative excision or repair [ ]iv) Aortofemoral or aortoiliac bypass with ANY ONE of the following: [ ]1) Continued intubation [ ]2) Hemodynamic instability [ ]3) Need for IV blood pressure control [ ]4) Severe cardiopulmonary disease [ ]c) Cardiac surgery [ ]d) Carotid endarterectomy or stent placement with ANY ONE of the following: [ ]i) Blood pressure <100/60 mm Hg or >160/90 mm Hg despite 4 h of postanesthetic management [ ]ii) New or progressive neurologic defect [ ]iii) Chest pain [ ]iv) Continued intubation [ ]v) Heart failure [ ]vi) Airway compromise by hematoma or vocal cord paralysis [ ]vi) Need for IV blood pressure control [ ]e) Heart transplant [ ]f) Infrainguinal peripheral vascular surgery with ANY ONE of the following: [ ]i) Hemodynamic instability [ ]ii) Acute complications such as persistent chest pain or respiratory distress [ ]iii) Requirement for IV antiarrhythmic or vasoactive agent [ ]iv) Requirement for pulmonary artery catheter [ ]v) Severe hypertension despite 6 hours of recovery room management [ ]g) Complications of any surgery requiring ICU intervention as indicated by ANY ONE of the following(24): [ ]i) Hemodynamic instability [ ]ii) Myocardial infarction with complications (eg, severe arrhythmia, hypotension) [ ]iii) Excessive bleeding or severe coagulopathy [ ]iv) Respiratory failure [ ]v) Renal failure [ ]vi) Airway instability or obstruction [ ]vii) Neurologic deterioration [ ]viii) Infection with likelihood of sepsis syndrome or significant fluid shifts [ ]IX.Endocrinology diagnoses or procedures, including ANY ONE of the following(25)(26): [ ]a) Adrenal crisis with Hemodynamic instability(27) [ ]b) Pheochromocytoma with ANY ONE of the following(28): [ ]i) Hypertensive crisis [ ]ii) Postoperative Hemodynamic instability [ ]iii) Need for IV vasoactive therapy [ ]iv) Need for invasive arterial or central venous pressure monitoring [ ]v) Organ ischemia [ ]c) Diabetic hyperosmolar state with obtundation or coma [ ]d) Diabetic ketoacidosis with ANY ONE of the following: [ ]i) Serum pH less than 7.10 or bicarbonate level less than 10 mEq/L (mmol/L) [ ]ii) Rapidly changing electrolytes [ ]iii) Hypotension [ ]iv) Requirement for large-volume fluid resuscitation [ ]v) Respiratory insufficiency [ ]vi) Life-threatening cardiac dysrhythmias [ ]vii) Obtundation [ ]viii) Severe precipitating condition such as sepsis, stroke, or acute AZ [ ]e) Severe hypoglycemia requiring continuous glucose infusion with frequent adjustment or glucagon infusion [ ]f) Hyperthyroidism associated with thyroid storm (also known as thyrotoxic crisis)(29) [ ]g) Myxedema with life-threatening neurologic, cardiovascular, electrolyte, or renal dysfunction(29) [ ]h) Diabetes insipidus that cannot be controlled with routine medication (30) [ ]X. Gastroenterology diagnoses or procedures, including ANY ONE of the following: [ ]a) Esophageal perforation(31) [ ]b) Severe caustic esophageal injury(31) [ ]c) Liver disease complications with ANY ONE of the following(32): [ ]i) Severe hepatic encephalopathy (eg, stage 3 (somnolent) or higher) [ ]ii) Type 1 hepatorenal syndrome [ ]iii) Other cirrhosis-associated causes of acute renal failure ( eg, severe hypovolemia, acute tubular necrosis, abdominal compartment syndrome) [ ]iv) Hemodynamic instability [ ]v) Respiratory insufficiency due to severe ascites [ ]vi) Sepsis due to spontaneous bacterial peritonitis [ ]d) Fulminant hepatic failure when aggressive intervention or transplant is anticipated (32) [ ]e) Gastrointestinal hemorrhage (upper or lower) with ANY ONE of the following(33)(34): [ ]i) Active ongoing bleeding [ ]ii) Transfusion requirement greater than 2 units of packed red cells [ ]iii) Bleeding ulcer or nonbleeding visible vessel seen on endoscopy [ ]iv) Bleeding ulcer, visible blood vessel, bleeding (or recently bleeding) esophageal varices seen on endoscopy [ ]v) Hypotension [ ]vi) Syncope [ ]vii) Coagulopathy [ ]viii) Hepatic cirrhosis [ ]ix) Abnormal mental status [ ]x) Unstable comorbid condition or end organ dysfunction [ ]xi) Ischemia due to poor perfusion [ ]xii) Need for hemodynamic monitoring (eg, for patients with heart failure or valvular disease) [ ]f) Severe pancreatitis indicated by ANY ONE of the following (35)(36): [ ]i) Requirement for aggressive fluid resuscitation [ ]ii) Life-threatening electrolyte abnormality [ ]iii) SBP less than 90 mm Hg [ ]iv) Persistent tachycardia greater than 120 beats per minute [ ]v) Patients at high risk of rapid deterioration, including ANY ONE of the following: [ ]1) Calculated [place] II score greater than 8 [ ]2) Age older than 55 years [ ]3) BMI greater than 30 [ ]4) Greater than 30% pancreatic necrosis on CT scan [ ]5) Admission hematocrit greater than 47% (0.47) [ ]vi) Organ failure as indicated by ANY ONE of the following: [ ]1) Serum creatinine greater than 1.9 mg/dL (168 micromoles/L) [ ]2) Requirement for mechanical ventilation [ ]3) Urine output less than 50 mL/hour [ ]4) Arterial partial pressure of oxygen less than 60 mm Hg (8.0 kPa) despite supplemental oxygen [ ]5) PiO2/FiO2 ratio less than 300 [ ]vii) Expanding pseudocyst [ ]viii) Infected pancreas [ ]ix) Pleural effusion [ ]x) Encephalopathy [ ]xi) Severe comorbidities [ ]XI. General Surgery diagnoses or procedures, including ANY ONE of the following (9)(24)(37): [ ]a) Acute abdominal catastrophe (eg, ischemic bowel, perforated viscus, abdominal compartment syndrome) [ ]b) Complications of any surgery requiring ICU intervention as indicated by ANY ONE of the following: [ ]i) Hemodynamic instability [ ]ii) [place] with complications (eg, severe arrhythmia, hypotension) [ ]iii) Excessive bleeding or severe coagulopathy [ ]iv) Respiratory failure [ ]v) Renal failure [ ]vi) Airway instability or obstruction [ ]vii) Neurologic deterioration [ ]viii) Infection with likelihood of sepsis syndrome or significant fluid shifts [ ]c) Multiple trauma with complicating features as indicated by ANY ONE of the following(38): [ ]i) Impending acute respiratory failure due to lung contusion, unstable chest wall, aspiration, or hemorrhage [ ]ii) Facial or neck injury threatening airway patency [ ]iii) Cardiac contusion [ ]iv) Pericardial effusion [ ]v) Bronchial tear [ ]vi) Hemodynamic instability [ ]vii) Rhabdomyolisis requiring large volume IV fluid resuscitation [ ]viii)Other significant complicating feature [ ]d) Organ transplant(39)(40) [ ]e) Esophagectomy(31) [ ]f) Whipple procedure [ ]g) Preoperative or postoperative patients requiring ICU intervention, such as hemodynamic optimization, pulmonary artery monitoring, mechanical ventilation, or extensive nursing care [ ]h) Obesity surgery patients with ANY ONE of the following(41): [ ]i) ICU management needs for comorbid conditions, such as sleep apnea or airway management needs [ ]ii) Failed postoperative extubation [ ]iii) Intraoperative complications [ ]XII. Nephrology diagnoses or procedures, including acute, or acute on chronic renal insufficiency with ANY ONE of the following(44)(45): [ ]a) Life-threatening electrolyte or acid-base disorder [ ]b) Acute pulmonary edema [ ]c) Hypotension or significant volume depletion [ ]d) Hypertensive emergency [ ]e) Underlying critical illness contributing to renal failure (eg, septic shock, hepatorenal syndrome) [ ]f) Need for continuous renal replacement therapy [ ]XIII. Neurology diagnoses or procedures, including ANY ONE of the following (46)(47) [B] : [ ]a) Intracranial hypertension requiring ANY ONE of the following(49 ): [ ]i) Induced barbiturate coma [ ]ii) Pharmacologic paralysis or deep sedation and mechanical ventilation [ ]iii) Intracranial pressure or cerebral perfusion pressure monitoring [ ]iv) IV mannitol or hypertonic saline [ ]v) Frequent serum osmolality measurements [ ]b) Seizures with ANY ONE of the following(50): [ ]i) Status epilepticus [ ]ii) Airway compromise requiring or likely to require mechanical ventilation [ ]iii) Severe electrolyte abnormalities causing seizures [ ]c) Progressive acute neurologic dysfunction requiring or likely to require ANY ONE of the following: [ ]i) Mechanical ventilation [ ]ii) Intracranial pressure or cerebral perfusion pressure monitoring [ ]d) Meningitis with obtundation or respiratory insufficiency [C])(51 ) [ ]e) Stroke with ANY ONE of the following(52)(53): [ ]i) Need for observation after thrombolysis [ ]ii) Altered mental status [ ]iii) Need for mechanical ventilation [ ]iv) Elevated intracranial pressure [ ]v) Hypertensive emergency [ ]vi) High risk of progressive infarction or deterioration based on CT scan or MRI [ ]vii) Hemorrhage [ ]f) Acute coma [ ]g) Acute spontaneous intracranial hemorrhage(53)(54) [ ]h) Drug ingestion with ANY ONE of the following(56)(57): [ ]i) Hemodynamic instability [ ]ii) Respiratory depression (partial pressure of carbon dioxide >45 mm Hg (6.0 kPa), new) [ ]iii) Patient requires or is likely to require mechanical ventilation. [ ]iv) Arrhythmias [ ]v) Seizures [ ]vi) Altered mental status (Stephanie coma scale score less than 12, new) [ ]vii) Significant risk for acute deterioration (eg, toxic level of hypotension or arrhythmia-producing drug) [ ]viii) Drug-induced hypothermia or hyperthermia [ ]ix) Increasing metabolic acidosis [ ]x) Severe hypoglycemia requiring glucose infusion with frequent adjustment or glucagon administration [ ]xi) Ongoing antidote administration (eg, continuous naloxone infusion, organophosphate toxicity treatment) [ ]xii) Emergency intervention need (eg, dialysis, hemoperfusion, restraints) [ ]i) Brain with preparation for organ donation [ ]j) Traumatic brain injury with ANY ONE of the following(55): [ ]i) Altered mental status (eg, new onset Stephanie coma scale score less than 10) [ ]ii) Cerebral edema [ ]iii) Cerebral hemorrhage [ ]iv) Increased intracranial pressure [ ]XIV. Neurosurgery diagnoses or procedures, including ANY ONE of the following(49)(58)(59): [ ]a) Emergency craniotomy for tumor, hematoma, or trauma [ ]b) Elective craniotomy for posterior fossa tumor [ ]c) Elective craniotomy (supratentorial) for tumor with ANY ONE of the following: [ ]i) Postoperative neurologic deficit or impaired consciousness 6 hours after completion of procedure [ ]ii) SBP less than 110 mm Hg or greater than 180 mm Hg despite therapy [ ]iii) Extensive operative blood loss [ ]iv) High anesthesia risk (eg, [place] [employer] anesthesiologists score greater than 3 [ ]d) Craniotomy for aneurysm with ANY ONE of the following: [ ]i) Postoperative neurologic deficit or impaired consciousness 6 hours after completion of procedure [ ]ii) Preoperative Recio-Dickey grade 3 or higher [ ]iii) SBP less than 110 mm Hg or greater than 180 mm Hg despite therapy [ ]iv) Intracranial pressure monitoring [ ]e) Acute spinal cord injury [ ]f) Subarachnoid hemorrhage [ ]g) Traumatic brain injury with ANY ONE of the following: [ ]i) Acute mental status change (Stephanie coma scale score less than 10) [ ]ii) CT scan showing cerebral edema or hemorrhage [ ]iii) Intracranial pressure monitoring [ ]h) Complications of any surgery requiring ICU intervention as indicated by ANY ONE of the following(60): [ ]i) Hemodynamic instability [ ]ii) [place] with complications (eg, severe arrhythmia, hypotension) [ ]iii) Excessive bleeding or severe coagulopathy [ ]iv) Respiratory failure [ ] v) Renal failure [ ]vi) Airway instability or obstruction [ ]vii) Neurologic deterioration [ ]viii) Infection with likelihood of sepsis syndrome or significant fluid shifts [ ]i) Preoperative or postoperative patients requiring ICU intervention, such as hemodynamic optimization, pulmonary artery monitoring, mechanical ventilation, or extensive nursing care [ ]XV.Obstetrics and Gynecology diagnoses or procedures, including ANY ONE of the ffg. (61)(62)(63): [ ]a) Severe peripartum condition as indicated by ANY ONE of the following: [ ]i) Eclampsia [ ]ii) Hypertensive emergency [ ]iii) HELLP syndrome (hemolysis, elevated liver enzymes, and low platelet count) [ ]iv) Pulmonary edema [ ]v) Respiratory failure [ ]vi) Pulmonary embolism [ ]vii) Anaphylactoid syndrome of (amniotic fluid embolus) [ ]viii) Ovarian hyperstimulation syndrome [D] [ ]ix) Acute fatty liver of (hepatic failure) [ ]x) Complications such as placental abruption or severe hemorrhage [ ]xi) Sepsis (eg, puerperal sepsis, chorioamnionitis, septic ) [ ]xii) cardiomyopathy with severe congestive heart failure (eg, respiratory failure, cardiogenic shock) [ ]b) Ruptured ectopic [ ]c) Complications of any surgery requiring ICU intervention as indicated by ANY ONE of the following: [ ]i) Hemodynamic instability [ ]ii) [place] with complications (eg, severe arrhythmia, hypotension) [ ]iii) Excessive bleeding or severe coagulopathy [ ]iv) Respiratory failure [ ]v) Renal failure [ ]vi) Airway instability or obstruction [ ]vii) Neurologic deterioration [ ]viii) Infection with likelihood of sepsis syndrome or significant fluid shifts [ ]d) Preoperative or postoperative patients requiring ICU intervention , such as hemodynamic optimization, pulmonary artery monitoring, mechanical ventilation, or extensive nursing care [ ]XVI.Ophthalmology diagnoses or procedures, including ANY ONE of the following (64): [ ]a) Complications of any surgery requiring ICU intervention, such as ANY ONE of the following: [ ]i) Hemodynamic instability [ ]ii) [place] with complications (eg, severe arrhythmia, hypotension) [ ]iii) Excessive bleeding or severe coagulopathy [ ]iv) Respiratory failure [ ]v) Renal failure [ ]vi) Airway instability or obstruction [ ]vii) Neurologic deterioration [ ]viii) Infection with likelihood of sepsis syndrome or significant fluid shifts [ ]b) Preoperative or postoperative patients requiring ICU intervention , such as hemodynamic optimization, pulmonary artery monitoring, mechanical ventilation, or extensive nursing care [ ]XVII.Orthopedics diagnoses or procedures, including ANY ONE of the following [phone]): [ ]a) Complications of any surgery requiring ICU intervention as indicated by ANY ONE of the following: [ ]i) Hemodynamic instability [ ]ii) [place] with complications (eg, severe arrhythmia, hypotension) [ ]iii) Excessive bleeding or severe coagulopathy [ ]iv) Respiratory failure [ ]v) Renal failure [ ]vi) Airway instability or obstruction [ ] vii) Neurologic deterioration [ ]viii) Infection with likelihood of sepsis syndrome or significant fluid shifts [ ]b) Multiple trauma with complicating features as indicated by ANY ONE of the following(38): [ ]i) Impending acute respiratory failure due to lung contusion, unstable chest wall, pneumothorax, aspiration, or hemorrhage [ ]ii) Facial or neck injury threatening airway patency [ ]iii) Cardiac contusion [ ]iv) Rhabdomyolysis requiring large volume IV fluid resuscitation [ ]v) Pericardial effusion [ ]vi) Bronchial tear [ ]vii) Hemodynamic instability [ ]viii) Other significant complicating feature [ ]c) Threatened compartment syndrome [ ]d) Severe nathan with ANY ONE of the following(68)(69)(70): [ ]i) Hypotension or requirement for aggressive fluid resuscitation [ ]ii) Respiratory insufficiency with requirement for high- flow oxygen or mechanical ventilation [ ]iii) Carbon monoxide poisoning [ ]iv) Life-threatening cardiac, renal, pulmonary, or neurologic dysfunction [ ]v) High-voltage (eg, 1000 volts or more) electrical burn [ ]vi) Requirement for frequent or intensive debridement and dressing changes; examples include: [ ]1) Partial thickness nathan greater than 10% of body surface [ ]2) Nathan on face, hands, feet, genitalia, perineum , or major joints [ ]3) Third-degree nathan [ ]4) Any burn greater than 15% of body surface area [ ]vii) Inhalation lung injury [ ]viii) Concomitant trauma or other medical condition requiring ICU care [ ]e) Preoperative or postoperative patients requiring ICU intervention , such as hemodynamic optimization, pulmonary artery monitoring, mechanical ventilation, or extensive nursing care [ ]XVIII.Otolaryngology diagnoses or procedures, including ANY ONE of the following (71)(72): [ ]a) Complications of any surgery requiring ICU intervention as indicated by ANY ONE of the following: [ ]i) Hemodynamic instability [ ]ii) [place] with complications (eg, severe arrhythmia, hypotension) [ ]iii) Excessive bleeding or severe coagulopathy [ ]iv) Respiratory failure [ ]v) Renal failure [ ]vi) Airway instability or obstruction [ ]vii) Neurologic deterioration [ ]viii) Infection with likelihood of sepsis syndrome or significant fluid shifts [ ]b) Airway or hemodynamic compromise that persists after 3 hours of observation in postanesthesia care unit following nasal, palate (eg, uvulopalatopharyngoplasty or palatoplasty), or tongue surgery for sleep apnea [ ]c) Preoperative or postoperative patient requiring ICU intervention, such as hemodynamic optimization, pulmonary artery monitoring, mechanical ventilation, or extensive nursing care [ ]d) Symptomatic upper airway compromise (eg, laryngeal edema, mass) [ ]e) Other airway-compromising procedure (eg, posterior nasal packing) [ ]XIX.Thoracic Surgery and Pulmonary Disease Diagnosis or procedures, including ANY ONE of the following(6): [ ]a) Asthma with ANY ONE of the following(73)(74): [ ]i) Impending or actual respiratory arrest [ ]ii) Need for mechanical ventilation [ ]iii) Peak expiratory flow rate less than 30% of predicted or personal best [ ]iv) Peak expiratory flow rate or FEV1 less than 40% predicted after 1 hour of initial treatment [ ]v) Acidosis [ ]vi) Persistent or worsening hypoxia after initial treatment [ ]vii) Hypercapnia (eg, partial pressure of carbon dioxide greater than 43 mm Hg (5.7 kPa)) [ ]viii) Severe drowsiness, confusion, or coma [ ]ix) Requiring continuous inhaled bronchodilator [ ]b) COPD with ANY ONE of the following(75): [ ]i) Need for assisted ventilation [ ]ii) Hemodynamic instability [ ]iii) Severe dyspnea unresponsive to initial treatment [ ]iv) Change in level of consciousness [ ]v) Persistent findings despite oxygen and outpatient management, including ANY ONE of the following: [ ]1) Partial pressure of oxygen less than 40 mm Hg ( 5.3 kPa) [ ]2) Partial pressure of carbon dioxide greater than 60 mm Hg (8.0 kPa) [ ]3) pH less than 7.25 [ ]4) Worsening hypoxemia or acidosis [ ]c) Cor pulmonale with ANY ONE of the following(75)(76)(77): [ ]i) Hemodynamic instability [ ]ii) Need for IV inotropic or vasoactive agent [ ]iii) Need for invasive hemodynamic monitoring (eg, central venous, pulmonary artery, or arterial catheter) [ ]iv) Hypoxemia with partial pressure of oxygen less than 40 mm Hg (5.3 kPa) [ ]v) Worsening hypoxemia or acidosis despite oxygen therapy [ ]vi) Need for assisted ventilation [ ]vii) Need for right ventricular assist device [ ]viii) Unstable atrial tachyarrhythmia [ ]ix) Need for inhaled nitric oxide [ ]d) Aspiration pneumonia with ANY ONE of the following(78): [ ]i) Acute respiratory distress syndrome (PaO2/FiO2 ratio of 300 or less) [ ]ii) Impending or actual respiratory arrest [ ]iii) Need for invasive or noninvasive mechanical ventilation [ ]e) Pneumocystis jiroveci pneumonia with ANY ONE of the following(79): [ ]i) Impending or actual respiratory arrest [ ]ii) Hypoxia (eg, PO260 mmGh (8.0 kPa) or less despite oxygen therapy) [ ]iii) Need for invasive or noninvasive mechanical ventilation [ ]f) Pneumonia with ANY ONE of the following(80)(81)(82): [ ]i) Need for invasive or noninvasive assisted ventilation [ ]ii) Hemodynamic instability [ ]iii) Severity factors as indicated by 3 or MORE of the following: [ ]1) Respiratory rate 30 breaths per minute or greater [ ]2) PaO2/FiO2 ratio of 250 or less [ ]3) Multilobed infiltrates [ ]4) Altered mental status [ ]5) BUN 20 mg/dL (7.1 mmol/L) or greater [ ]6) WBC count less than 4000/mm3 (4 x109/L) [ ]7) Platelet count <100,000/mm3 (100 x109/L) [ ]8) Temperature less than 36 degrees C (96.8 degrees F ) [ ]9) Hypotension requiring aggressive fluid resuscitation [ ]g) Pulmonary hypertension requiring initiation of parenteral pulmonary vasodilator or trial of inhaled nitric oxide (eg, need for right heart catheterization)(76) [ ]h) Impending respiratory failure as indicated by ANY ONE of the following: [ ]i) Respiratory rate greater than 30 or partial pressure of oxygen less than 60 mm Hg (8.0 kPa) on 50% oxygen or more [ ]ii) Partial pressure of carbon dioxide greater than 45 mm Hg (6.0 kPa) with pH less than 7.35 [ ]i) Respiratory failure with ANY ONE of the following (47): [ ]i) Need for invasive or noninvasive mechanical ventilation [ ]ii) High likelihood of requiring mechanical ventilation within 24 hours [ ]iii) Observation in the first several hours immediately after extubation from mechanical ventilation [ ]iv) Need for close observation and aggressive therapy, such as suctioning, chest physiotherapy, or inhalation treatments at intervals less than 1 hour [ ]v) Pharmacologic ventilatory paralysis [ ]j) Venous thromboembolism with need for systemic or catheter- directed thrombolysis (eg, for limb-threatening thrombosis, phlegmasia cerulea dolens) (83) [ ]k) Pulmonary embolus with ANY ONE of the following(83): [ ]i) Hypotension [ ]ii) Severe hypoxia [ ]iii) Dangerous arrhythmia [ ]iv) Bleeding [ ]v) Need for systemic or catheter-directed thrombolysis [ ]l) Lobectomy or other major thoracic surgery [ ]m) Lung transplant [ ]n) Symptomatic upper airway obstruction (eg, laryngeal edema, mass) [ ]o) Massive hemoptysis [ ]p) Infection or thrombosis of an intravenous device with ANY ONE of the following(6)(84): [ ]i) Hemodynamic instability [ ]ii) Requirement for frequent hemodynamic measurements [ ]iii) Shock [ ]iv) End organ dysfunction [ ] v) Acute renal failure due to missed dialysis [ ]vi) Unstable acute complication (eg, pericardial tamponade , tension pneumothorax) [ ]q) Traumatic rib fracture or fractures with ANY ONE of the following(85): [ ]i) Injury severity score of 19 or greater [ ]ii) Respiratory insufficiency [ ]iii) Flail chest [ ]iv) Sternum fracture [ ]v) Vascular injury (eg, heart or great vessels) [ ]r) Pleural effusion with ANY ONE of the following(86): [ ]i) Respiratory insufficiency [ ]ii) Hemothorax with active ongoing bleeding [ ]iii) Hemodynamic instability [ ]iv) Unstable comorbid condition (eg, sepsis or heart failure [ ]XX. Urology diagnoses or procedures, including ANY ONE of the following ( 87)(88): [ ]a) Renal transplant [ ]b) Complications of any surgery requiring ICU intervention as indicated by ANY ONE of the following: [ ]i) Hemodynamic instability [ ]ii) [place] with complications (eg, severe arrhythmia, hypotension) [ ]iii) Excessive bleeding or severe coagulopathy [ ]iv) Respiratory failure [ ]v) Renal failure [ ]vi) Airway instability or obstruction [ ]vii) Neurologic deterioration [ ]viii) Infection with likelihood of sepsis syndrome or significant fluid shifts [ ]c) Preoperative or postoperative patients requiring ICU intervention , such as hemodynamic optimization, pulmonary artery monitoring, mechanical ventilation , or extensive nursing care [ ]XXI.Infectious Disease diagnoses or procedures, with ANY ONE of the following (6)(43): [ ]a) Hemodynamic instability [ ]b) Shock [ ]c) Requirement for frequent hemodynamic measurements (eg, arterial catheter, pulmonary artery catheter) [ ]d) Sepsis or suspected sepsis with end organ dysfunction (eg, acute kidney injury, acute respiratory distress syndrome) [ ]e) Necrotizing soft tissue infection [ ] XXII.Hematology - Oncology diagnoses or procedures, including chemotherapy administration with ANY ONE of the following(42): [ ]a) Hemodynamic instability [ ]b) Tumor lysis syndrome with ANY ONE of the following : [ ]1) Acute kidney injury [ ]2) Severe electrolyte abnormality [ ]3) Cardiac dysrhythmia [ ]XXIII. Systemic conditions, including ANY ONE of the following: [ ]a) Severe electrolyte or metabolic disturbance causing or likely to cause ANY ONE of the following(10)(89)(90): [ ]i) Life-threatening cardiac dysrhythmia [ ]ii) Respiratory insufficiency [ ]iii) Altered mental status [ ]iv) Seizures [ ]v) Hemodynamic instability [ ]vi) Muscular weakness [ ]b) Environmental injuries such as hypothermia, hyperthermia, electrical injuries, or near drowning(70)(91)(92) The original [facility] content created by [employer] has been revised. The portions of the content which have been revised are identified through the use of italic text or in bold, and [facility] has neither reviewed nor approved the modified material. All other unmodified content is copyright [facility]. Please see references footnoted in the original [facility] edition 2016
[2016-07-11] MEDS ORDERED: ADRENALIN 8 MG in NACL 0.9% 250ML 242 ML IV ONE (21:08)
[2016-07-11 21:23] LABS: Hematocrit 33.2 % (30.3-42.9); Hemoglobin 9.8 gm/dl (10.1-14.3); Mean Corpuscular HGB Conc 29 % (30-34); Mean Corpuscular Hemoglobin 28 pg (28-32); Mean Corpuscular Volume 97 fl (79-97); Platelet Count 174 K/mm3 (140-440); Red Blood Count 3.44 M/mm3 (3.65-5.03); White Blood Count 9.6 K/mm3 (4.5-11.0)
--- NOTE | 2016-07-11 21:28 | Emergency Department Report ---
ED CPR HPI - General Chief Complaint: Cardiac Arrest/CPR Stated Complaint: CARDIAC ARREST Time Seen by Provider: 07/11/16 20:09 Source: EMS (verbal report received from EMS. ems notes not available at time of chart dictation), old records reviewed Mode of arrival: Stretcher Limitations: No Limitations, Physical Limitation - History of Present Illness Initial Comments: This is a 56-year-old female. She is previously unknown to me. Past medical history includes CHF, hypertension, COPD, pulmonary hypertension, high cholesterol, peripheral artery disease, [employer] AICD device. The patient is brought to the hospital by EMS as an out of hospital cardiac arrest. EMS reports that patient was in a car with family, and began to have some gurgling sounds, and then became unresponsive. EMS reports initial rhythm in the field was asystole/PeA. EMS indicates that they intubated in the field. Upon arrival to the ER, the patient was obtunded, with a GCS of 3, intubated, appropriate fingerstick, pupils midpoint and nonreactive. Patient received high-quality CPR, standard ACLS medications. Patient was able to regain spontaneous circulation, initial rhythm was ventricular paced rhythm. The EKG was transmitted to the ski maker wood, Dr. Galicia, who personally reviewed the EKG, it indicated the patient was not a candidate for the catheterization lab. Shoulder thereafter, the patient lost pulses and was coded. The patient was coded in the ER 3 times. Patient regain pulses 2, and after she coded at that time we could not obtain pulses. Given prolonged downtime, nonreactive pupils, no obvious cardiac activity on ultrasound, resuscitation efforts were terminated. At this point in time, family's not available. Resuscitation efforts were terminated secondary to inability to obtain pulses. Bedside ultrasound did not demonstrate coordinated ventricular activity. MD Complaint: stopped breathing -: hour(s) Place: other (in car) Bystander CPR Performed: No AED Applied by Bystander/[employer] Manager: No Initial Findings in the Field: unresponsive, no pulse, PEA ROSC in the Field: No Treatments Prior to Arrival: intubation, chest compressions, epinephrine mgs # - Related Data Home Medications Medication Instructions Recorded Confirmed Last Taken Digoxin [Lanoxin] 0.125 mg PO DAILY 12/31/14 05/02/16 1 Day Ago Metformin HCl [Glucophage] 1,000 mg PO BID 12/31/14 05/02/16 05/01/16 NIFEdipine XL [Procardia Xl] 60 mg PO QDAY 12/31/14 05/02/16 05/01/16 Potassium Chloride [K-Dur] 20 meq PO QDAY 12/31/14 05/02/16 05/01/16 Quinapril HCl 1 tab PO AC 12/31/14 05/02/16 05/01/16 Furosemide [Lasix TAB] 40 mg PO QDAY 01/03/15 05/02/16 05/01/16 Carvedilol Phosphate [Coreg CR] 80 mg PO QDAY 05/02/16 05/02/16 05/01/16 Isosorbide Dinitrate [Isordil 10 mg PO TID 05/02/16 05/02/16 05/01/16 Titradose] hydrALAZINE [Apresoline TAB] 25 mg PO Q8HR 05/02/16 05/02/16 05/01/16 Previous Rx's Medication Instructions Recorded Last Taken Type Aspirin EC [Aspirin Enteric Coated 81 mg PO QDAY #30 tablet. 05/06/16 Unknown Rx TAB] Simvastatin [Zocor TAB] 40 mg PO QHS tablet 05/06/16 Unknown Rx Spironolactone [Aldactone] 25 mg PO QDAY #30 tablet 05/06/16 Unknown Rx Allergies Allergy/AdvReac Type Severity Reaction Status Date / Time No Known Allergies Allergy Unverified 12/31/14 14:21 ED Review of Systems ROS: Stated complaint: CARDIAC ARREST Other details as noted in HPI Comment: Unobtainable due to pts medical conditions ED Past Medical Hx - Past Medical History Previous Medical History?: Yes Hx Hypertension: Yes Hx Heart Attack/AMI: No Hx Congestive Heart Failure: Yes Hx Diabetes: Yes Hx Asthma: No Hx COPD: Yes - Surgical History Past Surgical History?: Yes Hx Internal Defibrillator: Yes - Social History Smoking Status: Unknown if ever smoked - Medications Home Medications: Home Medications Medication Instructions Recorded Confirmed Last Taken Type Digoxin [Lanoxin] 0.125 mg PO DAILY 12/31/14 05/02/16 1 Day Ago History Metformin HCl [Glucophage] 1,000 mg PO BID 12/31/14 05/02/16 05/01/16 History NIFEdipine XL [Procardia Xl] 60 mg PO QDAY 12/31/14 05/02/16 05/01/16 History Potassium Chloride [K-Dur] 20 meq PO QDAY 12/31/14 05/02/16 05/01/16 History Quinapril HCl 1 tab PO AC 12/31/14 05/02/16 05/01/16 History Furosemide [Lasix TAB] 40 mg PO QDAY 01/03/15 05/02/16 05/01/16 History Carvedilol Phosphate [Coreg CR] 80 mg PO QDAY 05/02/16 05/02/16 05/01/16 History Isosorbide Dinitrate [Isordil 10 mg PO TID 05/02/16 05/02/16 05/01/16 History Titradose] hydrALAZINE [Apresoline TAB] 25 mg PO Q8HR 05/02/16 05/02/16 05/01/16 History Aspirin EC [Aspirin Enteric Coated 81 mg PO QDAY #30 tablet. 05/06/16 Unknown Rx TAB] Simvastatin [Zocor TAB] 40 mg PO QHS tablet 05/06/16 Unknown Rx Spironolactone [Aldactone] 25 mg PO QDAY #30 tablet 05/06/16 Unknown Rx ED Physical Exam - General Limitations: Other (unresponsive, GCS of 3, intubated, nonreactive pupils) General appearance: obese - Head Head exam: Present: atraumatic, normocephalic - Eye Eye exam: Present: other (pupils midpoint, do not react to light) - ENT ENT exam: Present: other (endotracheal tube noted in oropharynx) - Neck Neck exam: Present: normal inspection - Respiratory Respiratory exam: Present: other (course rhonchorous breath sounds appreciated 1 [id number] ventilation is applied) - Cardiovascular Cardiovascular Exam: Present: other (PE A/asystole). Absent: systolic murmur, diastolic murmur, rubs, gallop - GI/Abdominal GI/Abdominal exam: Present: soft - Rectal Rectal exam: Present: normal inspection - External exam: Present: normal external exam - Extremities Exam Extremities exam: Present: normal inspection - Back Exam Back exam: Present: normal inspection - Neurological Exam Neurological exam: Present: other (intubated, GCS of 3.) - Psychiatric Psychiatric exam: Present: other (nonresponsive, nonverbal.) - Skin Skin exam: Present: warm ED Course Vital Signs 07/11/16 19:48 Pulse Rate 121 H Blood Pressure 140/121 [Left] O2 Sat by Pulse 100 Oximetry - Central Line Placement Left IJ Consent Obtained: emergent situation Time Out Performed: Yes Patient Placed on Monitor/Pulse Ox: Yes Prep: mask, gown, gloves Central Line Prep: Povidone-Iodine 1% Ultrasound Used for Placement: Yes Central Line Lumen Inserted: triple Bloods Obtained for Lab: Yes Central Line Position: good blood return Dressing Applied: Tegaderm Patient Tolerated Procedure: well Complications: none - EJ/Peripheral Line Neck L Time Out Performed: Yes Indications: multiple IV sites needed Skin Cleansed in Sterile Fashion: Yes Size: 18 Dressing Placed: Tegaderm Patient Tolerated Procedure: well ED Medical Decision Making - Lab Data Result diagrams: 07/11/16 20:58 07/11/16 20:58 Vital Signs 07/11/16 19:48 Pulse Rate 121 H Blood Pressure 140/121 [Left] O2 Sat by Pulse 100 Oximetry - EKG Data -: EKG Interpreted by Ut - EKG Data 07/11/16 21:30 EKG #1 demonstrates ventricular paced, 97 bpm, left axis, motion artifact, not morphologically consistent with STEMI. EKG #2, ventricular paced, 60 bpm, good capture, left axis deviation, not consistent with STEMI. EKG #3: Ventricular paced, good capture, left axis, not consistent with STEMI. Critical care attestation.: If time is entered above; I have spent that time in minutes in the direct care of this critically ill patient, excluding procedure time. ED Disposition Clinical Impression: Cardiac arrest Disposition: Is pt being admited?: No Does the pt Need Aspirin: No Condition: Undetermined Referrals: PRIMARY CARE, [Primary Care Provider] - 3-5 Days
[2016-07-11] MEDS ORDERED: fentaNYL DRIP Premix 2,000 MCG/100 ML BAG IV SCH (21:30)
[2016-07-11 21:33] LABS: INR 1.54 (0.87-1.13)
[2016-07-11 21:42] LABS: Partial Thromboplastin Time 62.6 Sec. (24.2-36.6)
[2016-07-11 21:44] LABS: Albumin 2.3 g/dL (3.9-5); Albumin/Globulin Ratio 0.8 %; Alkaline Phosphatase 98 units/L (35-129); Blood Urea Nitrogen 11 mg/dL (7-17); Calcium 9.8 mg/dL (8.4-10.2); Carbon Dioxide 18 mmol/L (22-30); Chloride 96.3 mmol/L (98-107); Creatine Kinase 292 units/L (30-135); Glucose 398 mg/dL (65-100); Sodium 145 mmol/L (137-145); Total Protein 5.2 g/dL (6.3-8.2)
[2016-07-11 21:47] LABS: Alanine Aminotransferase 88 units/L (7-56); Anion Gap 35 mmol/L; Potassium 4.1 mmol/L (3.6-5.0)
[2016-07-11 21:56] LABS: Cholesterol 163 mg/dL (50-199); HDL Cholesterol 53 mg/dL (40-59); LDL Cholesterol,Direct 84 mg/dL (50-130); Triglycerides 130 mg/dL (2-149)
[2016-07-11 22:05] LABS: Anisocytosis 1+; Basophils % (Manual) 0 % (0.0-1.8); Blastocytes % (Manual) 0 %; Diff Status Complete; Platelet Estimate Consistent w Auto; Poikilocytosis 1+
[2016-07-11] MEDS ORDERED: LEVOPHED DRIP 4 MG/NS 250 ML 4 MG/250 ML BAG IV SCH (23:00)
[2016-07-11] MEDS ORDERED: LEVOPHED IV SCH (23:50)
[2016-07-11] MEDS ORDERED: NACL 0.9% IV SCH (23:50)
== END 2016-07-12 00:30 ==
LOC: ED 19:48
DX: I46.9 Cardiac arrest, cause unspecified (principal); I10 Essential (primary) hypertension; I50.9 Heart failure, unspecified; E11.9 Type 2 diabetes mellitus without complications; J44.9 Chronic obstructive pulmonary disease, unspecified
CPT/HCPCS: 31500; 36415; 36569; 51702; 80053; 80061; 82550; 82553; 82962; 83735; 84484; 85007; 85025; 85610; 85730; 86850; 86900; 86901; 93005; 93010; 99285; J0171; J0282; J3010; J7050